=== PATIENT | female | born 1965 | race Caucasian/White ===

== ENCOUNTER → 2019-02-23 | Outpatient (CLI) | payer OTHER ==
--- NOTE | 2019-02-23 11:11 | Diagnostic Imaging Report ---
INDICATION: Left ankle pain. Time of exam: 10:41 AM 3 views of the left ankle were obtained. There is some widening of the medial clear space of the ankle mortise. This can be seen with ligamentous injury. Osseous densities are noted adjacent to the medial malleolus as well as the lateral malleolus which could be chronic. No acute fracture line is identified. There is some soft tissue swelling about the ankle. IMPRESSION: Soft tissue swelling as well as some widening of the medial clear space of the ankle which can be seen with ligamentous injury. No definite acute fracture is identified. Dictated by: Dictated on workstation # [id number]
== END ==
LOC: RAD FS 10:34
PROVIDERS: ATTEND Family Medicine
DX: M25.572 Pain in left ankle and joints of left foot (principal); M79.89 Other specified soft tissue disorders
CPT/HCPCS: 73610

== ENCOUNTER → 2019-07-21 | Outpatient (CLI) | payer MEDICARE, OTHER ==
[~2019-07-21] MED LIST: GADOBUTROL 7.5 MMOL/7.5 ML (GADAVIST) VIAL IV ONE
[2019-07-21 13:53] LABS: ALANINE AMINOTRANSFERASE 19 U/L (0-55); ALBUMIN 4.4 GM/DL (3.2-4.5); ALKALINE PHOSPHATASE 98 U/L (40-136); BILIRUBIN,TOTAL 0.9 MG/DL (0.1-1.0); BUN/CREATININE RATIO 14; CALCIUM 9.6 MG/DL (8.5-10.1); CARBON DIOXIDE 26 MMOL/L (21-32); CHLORIDE 103 MMOL/L (98-107); CREATININE SERUM 0.78 MG/DL (0.60-1.30); GFR ESTIMATED > 60; GLUCOSE 85 MG/DL (70-105); POTASSIUM 4.4 MMOL/L (3.6-5.0); SODIUM 140 MMOL/L (135-145)
--- NOTE | 2019-07-21 16:09 | Diagnostic Imaging Report ---
PROCEDURE: MR imaging of the brain with and without contrast. TECHNIQUE: Multiplanar, multisequence MR imaging of the brain was performed with and without contrast. INDICATION: Multiple sclerosis. COMPARISON: There is no previous study available at this time for direct comparison. FINDINGS: There is mild diffuse prominence of ventricles and sulci indicating volume loss. In addition, there is rather extensive T2 prolongation within the deep white matter and periventricular white matter of both hemispheres with areas of possible early cyst formation. Majority of lesions are oriented perpendicular to the corpus callosum with abnormal increased T2 signal throughout the corpus callosum as well. There is no evidence of positive mass effect or shift of midline structures. There is no abnormal contrast enhancement. No restricted diffusion is seen to indicate infarct or active multiple sclerosis lesion. IMPRESSION: Findings are compatible with extensive involvement with multiple sclerosis as described. There is mild background volume loss throughout the brain. No acute infarct or other acute intracranial lesion is identified, and no abnormal contrast enhancement is detected. Dictated by: Dictated on workstation # [id number]
--- NOTE | 2019-07-21 16:25 | Diagnostic Imaging Report ---
PROCEDURE: MR imaging of the cervical spine with and without contrast. TECHNIQUE: Multiplanar and multisequence MRI of the cervical spine was performed with and without contrast. INDICATION: History of multiple sclerosis. Follow-up. COMPARISON: None available. FINDINGS: There is mildly exaggerated cervical lordosis. No spondylolisthesis is seen. Vertebral body heights are preserved. No acute fracture is seen. On axial imaging, there appear to be multiple areas of increased T2 signal in the cervical cord. There is a 2 mm lesion in the left cord at the C4-C5 level. There is an ill-defined lesion of the cord extending from C2 down to C3, which is also seen on the sagittal view (image 7, series 11). No enhancing lesions are seen. There is no spinal canal stenosis. There appears to be ill-defined T2 hyperintensity in the jam as well. C2-C3: Small posterior disc osteophyte complex. No foraminal or spinal canal stenosis. C3-C4: Small posterior disc osteophyte complex. Mild left foraminal narrowing. No spinal canal stenosis. C4-C5: Posterior disc osteophyte complex. No spinal canal or foraminal stenosis. C5-C6: Posterior disc osteophyte complex. Mild right foraminal narrowing. Moderate left foraminal stenosis. No spinal canal stenosis. C6-C7: Posterior disc osteophyte complex. No spinal canal or foraminal stenosis. C7-T1: No spinal canal or foraminal stenosis. IMPRESSION: 1. Multiple subtle ill-defined T2 bright lesions in the spinal cord, as described above. No enhancement is seen. 2. Ill-defined pontine lesions as well, please refer to MRI of the brain. 3. Multilevel degenerative changes in the cervical spine. No spinal canal stenosis. Moderate left foraminal stenosis at C5-C6. Dictated by: Dictated on workstation # [id number]
== END ==
LOC: RAD 13:04
PROVIDERS: ATTEND Psychiatry & Neurology Neurology
DX: G35 Multiple sclerosis (principal); M48.02 Spinal stenosis, cervical region; M47.812 Spondylosis without myelopathy or radiculopathy, cervical region
CPT/HCPCS: 36415; 70553; 72156; 80053

== ENCOUNTER → 2020-03-26 | Outpatient (CLI) | payer MEDICARE ==
[2020-03-26 13:54] LABS: ALANINE AMINOTRANSFERASE 8 U/L (0-55); ALKALINE PHOSPHATASE 79 U/L (40-136); BILIRUBIN,TOTAL 0.5 MG/DL (0.1-1.0); BUN/CREATININE RATIO 25; CALCIUM 9.5 MG/DL (8.5-10.1); CARBON DIOXIDE 29 MMOL/L (21-32); CHLORIDE 105 MMOL/L (98-107); CREATININE SERUM 0.71 MG/DL (0.60-1.30); GFR ESTIMATED > 60; GLUCOSE 85 MG/DL (70-105); POTASSIUM 4.2 MMOL/L (3.6-5.0); SODIUM 141 MMOL/L (135-145); TOTAL PROTEIN 6.2 GM/DL (6.4-8.2)
--- NOTE | 2020-03-26 16:06 | Diagnostic Imaging Report ---
PROCEDURE: MR imaging of the brain with and without contrast. TECHNIQUE: Multiplanar, multisequence MR imaging of the brain was performed with and without contrast. INDICATION: Multiple sclerosis. COMPARISON: 07/21/2019. FINDINGS: There is prominence of the ventricles and sulci which is unchanged. Note is again made of extensive T2 hyperintensities within the deep white matter and periventricular white matter which are stable. Many of these are oriented perpendicular to the corpus callosum. There are no abnormal areas of contrast enhancement. There are no areas of diffusion restriction. There is no mass, hemorrhage, or extra-axial fluid collection. The sinuses and mastoid air cells are clear. IMPRESSION: Extensive white matter disease as described, compatible with multiple sclerosis. There is a background of some atrophy. There is, however, no acute infarct or other acute intracranial abnormality. Additionally, there are no abnormal areas of contrast enhancement appreciated to suggest active disease. Dictated by: Dictated on workstation # [id number]
--- NOTE | 2020-03-26 16:32 | Diagnostic Imaging Report ---
PROCEDURE: MR imaging cervical spine with and without contrast. TECHNIQUE: Multiplanar and multisequence MRI of the cervical spine was performed with and without contrast. INDICATION: Multiple sclerosis. Comparison made with prior examination from 07/21/2019. FINDINGS: The alignment of the cervical spine is normal. The vertebral body heights are well maintained. Prevertebral soft tissues are within normal limits. Note is again made of some subtle amorphous T2 bright areas within the upper cervical cord and to a lesser degree the jam. None of these show any contrast enhancement. The cord itself is otherwise normal in morphology. At C2-C3, there is no spinal or neuroforaminal encroachment. At C3-C4, there is mild bilateral uncovertebral joint hypertrophy with mild bilateral neuroforaminal encroachment. At C4-C5, there is mild annular bulging and mild bilateral uncovertebral joint hypertrophy. There is slight effacement of the ventral thecal sac and mild bilateral neuroforaminal encroachment. At C5-C6, there is mild annular bulging and bilateral uncovertebral joint hypertrophy. There is mild effacement of the ventral thecal sac and mild bilateral neuroforaminal encroachment. At C6-C7, there is annular bulging with slight effacement of the ventral thecal sac. At C7-T1, there is no significant spinal or neuroforaminal encroachment. IMPRESSION: Unchanged subtle areas of ill-defined T2 bright signal intensity within the upper cord and jam. This is essentially unchanged. None of these show abnormal enhancement. Diffuse cervical spondylosis and multilevel degenerative disc disease as described. Dictated by: Dictated on workstation # [id number]
== END ==
LOC: RAD 13:09
PROVIDERS: ATTEND Psychiatry & Neurology Neurology
DX: G35 Multiple sclerosis (principal); M47.812 Spondylosis without myelopathy or radiculopathy, cervical region; M50.30 Other cervical disc degeneration, unspecified cervical region; G31.9 Degenerative disease of nervous system, unspecified; R90.82 White matter disease, unspecified
CPT/HCPCS: 36415; 70553; 72156; 80053

== ENCOUNTER 2022-01-01 21:40 | Inpatient (IN) | payer MEDICARE ==
[~2022-01-01] VITALS: Ht 160 cm; Wt 80.0 kg
--- NOTE | 2022-01-01 21:53 | ED General ---
General Stated Complaint: FEVER History of Present Illness Date Seen by Provider: Jan 01, 2022 Time Seen by Provider: 21:53 Initial Comments 56-year-old female with PMH of multiple sclerosis, end stage/leukemia/ sacral ulcers, is brought in by her family with complaints of generalized weakness, fever, lack of appetite for the past 2 to 3 days which has been worsening. Patient is taking care of by her and family. Patient is unable to ambulate at baseline. Patient's uses a [employer] lift at home and also uses a lift to get her into his pickup truck. EMS had to come to the hospital to assist the patient out of the pickup truck. Patient is able to respond to questions but has generalized weakness and lethargy. At baseline patient's speech is not clear as per and family. Denies nausea, vomiting, chest pain, shortness of breath, headache. Patient's thinks she has more loos e stools than usual but not watery like diarrhea. Allergies and Home Medications Allergies Coded Allergies: No Known Drug Allergies (Unverified , 07/21/19) Patient Home Medication List Home Medication List Reviewed: Yes Review of Systems Review of Systems Constitutional: fever, malaise, weakness EENTM: no symptoms reported Respiratory: no symptoms reported Cardiovascular: no symptoms reported Gastrointestinal: diarrhea, loss of appetite Genitourinary: no symptoms reported Musculoskeletal: no symptoms reported Skin: other (sacral ulcers) Hematologic/Lymphatic: See HPI Immunological/Allergic: no symptoms reported Physical Exam Vital Signs Vital Signs - First Documented 01/01/22 21:50 Temp 37.7 Pulse 125 Resp 18 B/P (MAP) 165/95 (118) Pulse Ox 94 O2 Delivery Room Air Capillary Refill : Height, Weight, BMI Height: '" Weight: lbs. oz. kg; BMI Method: General Appearance: Mild Distress, Obese HEENT: Normal ENT Inspection, Other (dry mucous membranes) Neck: Full Range of Motion, Normal Inspection, Non Tender Respiratory: No Accessory Muscle Use, No Respiratory Distress, Rhonci Cardiovascular: Tachycardia Gastrointestinal: Normal Bowel Sounds, Non Tender, Soft Back: No CVA Tenderness Neurologic/Psychiatric: Alert, Oriented x3, Motor Weakness, Other (lethargic) Skin: Warm/Dry Focused Exam Lactate Level 01/01/22 22:15: Lactic Acid Level 0.67 Lactic Acid Level Laboratory Tests Test 01/01/22 22:15 Lactic Acid Level 0.67 MMOL/L (0.50-2.00) Progress/Results/Core Measures Suspected Sepsis SIRS Temperature: Pulse: Respiratory Rate: Laboratory Tests 01/01/22 22:15: White Blood Count 7.4 Blood Pressure / Mean: 01/01/22 22:15: Lactic Acid Level 0.67 Laboratory Tests 01/01/22 22:15: Creatinine 0.51L, INR Comment 1.0, Platelet Count 199, Total Bilirubin 0.9 Results/Orders Lab Results Laboratory Tests Test 01/01/22 22:15 01/01/22 22:50 01/01/22 23:00 Range/Units White Blood Count 7.4 4.3-11.0 10^3/uL Red Blood Count 4.77 3.80-5.11 10^6/uL Hemoglobin 14.0 11.5-16.0 g/dL Hematocrit 42 35-52 % Mean Corpuscular Volume 88 80-99 fL Mean Corpuscular Hemoglobin 29 25-34 pg Mean Corpuscular Hemoglobin Concent 33 32-36 g/dL Red Cell Distribution Width 14.1 10.0-14.5 % Platelet Count 199 130-400 10^3/uL Mean Platelet Volume 10.1 9.0-12.2 fL Immature Granulocyte % (Auto) 0 % Neutrophils (%) (Auto) 83 H 42-75 % Lymphocytes (%) (Auto) 9 L 12-44 % Monocytes (%) (Auto) 8 0-12 % Eosinophils (%) (Auto) 0 0-10 % Basophils (%) (Auto) 0 0-10 % Neutrophils # (Auto) 6.1 1.8-7.8 10^3/uL Lymphocytes # (Auto) 0.7 L 1.0-4.0 10^3/uL Monocytes # (Auto) 0.6 0.0-1.0 10^3/uL Eosinophils # (Auto) 0.0 0.0-0.3 10^3/uL Basophils # (Auto) 0.0 0.0-0.1 10^3/uL Immature Granulocyte # (Auto) 0.0 0.0-0.1 10^3/uL Prothrombin Time 13.1 12.2-14.7 SEC INR Comment 1.0 0.8-1.4 Activated Partial Thromboplast Time 32 24-35 SEC D-Dimer 1.07 H 0.00-0.49 UG/ML Sodium Level 138 135-145 MMOL/L Potassium Level 4.2 3.6-5.0 MMOL/L Chloride Level 101 98-107 MMOL/L Carbon Dioxide Level 25 21-32 MMOL/L Anion Gap 12 5-14 MMOL/L Blood Urea Nitrogen 12 7-18 MG/DL Creatinine 0.51 L 0.60-1.30 MG/DL Estimat Glomerular Filtration Rate 109 BUN/Creatinine Ratio 24 Glucose Level 114 H 70-105 MG/DL Lactic Acid Level 0.67 0.50-2.00 MMOL/L Calcium Level 9.0 8.5-10.1 MG/DL Corrected Calcium 9.2 8.5-10.1 MG/DL Magnesium Level 2.0 1.6-2.4 MG/DL Total Bilirubin 0.9 0.1-1.0 MG/DL Aspartate Amino Transf (AST/SGOT) 19 5-34 U/L Alanine Aminotransferase (ALT/SGPT) 12 0-55 U/L Alkaline Phosphatase 105 40-136 U/L Troponin I < 0.30 <0.30 NG/ML Pro-B-Type Natriuretic Peptide 91.7 H <75.0 PG/ML Total Protein 6.6 6.4-8.2 GM/DL Albumin 3.8 3.2-4.5 GM/DL Lipase 21 8-78 U/L Influenza Type A Antigen NEGATIVE NEGATIVE Influenza Type B Antigen NEGATIVE NEGATIVE Urine Color YELLOW Urine Clarity TURBID Urine pH 8.5 5-9 Urine Specific [place] 1.015 L 1.016-1.022 Urine Protein NEGATIVE NEGATIVE Urine Glucose (UA) NEGATIVE NEGATIVE Urine Ketones TRACE H NEGATIVE Urine Nitrite NEGATIVE NEGATIVE Urine Bilirubin NEGATIVE NEGATIVE Urine Urobilinogen 1.0 < = 1.0 MG/DL Urine Leukocyte Esterase NEGATIVE NEGATIVE Urine RBC (Auto) NEGATIVE NEGATIVE Urine RBC RARE /HPF Urine WBC 2-5 /HPF Urine Squamous Epithelial Cells RARE /HPF Urine Renal Epithelial Cells RARE /HPF Urine Crystals PRESENT H /LPF Urine Amorphous Sediment LARGE DREW PHOSPHATE H /LPF Urine Bacteria LARGE H /HPF Urine Casts PRESENT /LPF Urine Hyaline Casts RARE /LPF Urine Mucus MODERATE H /LPF Urine Culture Indicated CULTURE PENDING My Orders Orders - STEVEN GOETZ MD Chest 1 View Ap/Pa Only (01/01/22 22:04) Cbc With Automated Diff (01/01/22 22:06) Comprehensive Metabolic Panel (01/01/22 22:06) Blood Culture (01/01/22 22:) Sputum Culture (01/01/22 22:) Urinalysis (01/01/22 22:) Urine Culture (01/01/22 22:06) Protime With Inr (01/01/22:) Partial Thromboplastin Time (01/01/22:) Ed Iv/Invasive Line Start (01/01/22 22:06) Ekg Tracing (01/01/22 22:) Vital Signs Adult Sepsis Patie Q15M (01/01/22 22:06) O2 (01/01/22 22:) Remove Rings In Anticipation O (01/01/22 22:) Lactic Acid Analyzer (01/01/22 22:) Ns Iv 1000 Ml (Sodium Chloride 0.9%) (01/01/22 22:15) Fibrin Degradation Products (01/01/22 22:08) Lipase (01/01/22 22:08) Magnesium (01/01/22 22:08) Procalcitonin (Pct) (01/01/22 22:08) Probnp Fs (01/01/22 22:08) Troponin I Fs (01/01/22 22:08) C Difficile Ag + Toxin A/B. (01/01/22 22:36) Isolation Central Supply Req (01/01/22 22:36) Covid 19 Inhouse Test (01/01/22 22:36) Isolation Central Supply Req (01/01/22 22:36) Ns Iv 1000 Ml (Sodium Chloride 0.9%) (01/01/22 23:15) Ct Angio Chest W (01/01/22 23:33) Iohexol Injection (Omnipaque 350 Mg/Ml 1 (01/01/22 23:45) Received Contrast (Hold Metformin- Contr (01/01/22 23:45) Sodium Chloride Flush (Catheter Flush Sy (01/01/22 23:45) Ns (Ivpb) (Sodium Chloride 0.9% Ivpb Bag (01/01/22 23:45) Influenza A & B Antigens (01/01/22 23:47) Catheter(Urinary) Insert & Ass 03,15 (01/01/22 23:48) Azithromycin 500 Mg Iv (1x Dos (01/02/22 01:23) Medications Given in ED Current Medications Medications Dose Ordered Sig/Derik Route Start Time Stop Time Status Last Admin Dose Admin Iohexol 125 ml ONCE ONCE IV 01/01/22 23:45 01/01/22 23:48 DC 01/02/22 00:04 125 ML Sodium Chloride 10 ml NEEDED PRN IV 01/01/22 23:45 01/02/22 00:05 10 ML Sodium Chloride 100 ml ONCE ONCE IV 01/01/22 23:45 01/01/22 23:48 DC 01/02/22 00:04 80 ML Vital Signs/I&O 01/01/22 01/01/22 01/01/22 01/02/22 21:50 22:30 23:00 00:15 Temp 37.7 Pulse 125 120 104 111 Resp 18 18 17 B/P (MAP) 165/95 (118) 162/95 142/86 144/94 Pulse Ox 94 93 97 O2 Delivery Room Air Room Air Room Air Room Air Capillary Refill : Progress Note : Progress Note 1. GENERALIZED WEAKNESS/ DEHYDRATION: - CXR unremarkable - Labs: overall unremarkable - UA no infection - Troponin/ EKG: no acute changes - NS IVF bolus STAT x 2 with tachycardia improving slightly - Pt still appears clinically dehydrated with generalized weakness and intolerance to food or liquids. - Will benefit from admission, physical therapy consult, and e-ICU consult. Discussed with Dr Torres - Code status discussed with pt and and Pt wants to be full code. 2. RIGHT LOWER LOBE PNEUMONIA/ COVID suspect - WBC normal but neutrophils elevated - Blood culture x 2 - CXR negative, but CTA done due to elevated d-dimer, and it shows a right basilar small infiltrate - COVID test ordered - suspicious for COVID - Rapid flu test negative - Azithro 500mg iv STAT and Ceftriaxone 1gm im STAT Diagnostic Imaging Diagonstic Imaging: Xray, CT Plain Films/CT/US/NM/MRI: chest Comments CTA CHEST READ BY STAT RAD: - No PE. - Patchy opacity at the right lung base may represent a small infiltrate [facility] [place] NAME: RAINAAMARA S [facility] REC#: [id number] PT STATUS: REG ER : 1965 PHYSICIAN: STEVEN GOETZ MD ADMIT DATE: 01/01/22/ER FS Signed Date of Exam:01/01/22 CHEST 1 VIEW AP/PA ONLY INDICATION: Fever. EXAMINATION: Portable chest at 10:10 PM. Heart size and pulmonary vascularity are normal. Lungs are clear. There are no effusions or pneumothoraces. IMPRESSION: No acute abnormalities in the chest. Dictated by: Dictated on workstation # [id number] Dict: 01/01/224 Trans: 01/01/222219 [id number] Interpreted by: JOEL SIDHU MD Electronically signed by: JOEL SIDHU MD 01/01/222219 Departure Communication (Admissions) Time/Spoke to Admitting Phy: 01:[address] Torres. Will admit to ICU Impression Primary Impression: Generalized weakness Additional Impressions: Dehydration Right lower lobe pneumonia Qualified Codes: J18.9 - Pneumonia, unspecified organism Suspected COVID-19 virus infection Disposition: 30 STILL A PATIENT Condition: Stable Admissions Decision to Admit Reason: Admit from ER (General) Decision to Admit/Date: Jan 02, 2022 Time/Decision to Admit Time: 01:00 Departure-Patient Inst. Referrals: EFRAIN CRABTREE MD (PCP/Family) Primary Care Physician STEVEN GOETZ MD Jan 01, 2022 21:53
[2022-01-01] MEDS ORDERED: NS IV 1000 ML 1,000 ML IV SCH ×2 (22:15→23:15)
--- NOTE | 2022-01-01 22:16 | Diagnostic Imaging Report ---
INDICATION: Fever. EXAMINATION: Portable chest at 10:10 PM. Heart size and pulmonary vascularity are normal. Lungs are clear. There are no effusions or pneumothoraces. IMPRESSION: No acute abnormalities in the chest. Dictated by: Dictated on workstation # [id number]
[2022-01-01 22:25] LABS: BASOPHILS % (AUTO) 0 % (0-10); EOSINOPHILS % (AUTO) 0 % (0-10); HEMATOCRIT 42 % (35-52); LYMPHOCYTES # (AUTO) 0.7 10^3/uL (1.0-4.0); LYMPHOCYTES % (AUTO) 9 % (12-44); MEAN CORPUSCULAR HEMOGLOBIN 29 pg (25-34); MEAN CORPUSCULAR HGB CONC 33 g/dL (32-36); MEAN CORPUSCULAR VOLUME 88 fL (80-99); MEAN PLATELET VOLUME 10.1 fL (9.0-12.2); MONOCYTES # (AUTO) 0.6 10^3/uL (0.0-1.0); MONOCYTES % (AUTO) 8 % (0-12); NEUTROPHILS # (AUTO) 6.1 10^3/uL (1.8-7.8); NEUTROPHILS % (AUTO) 83 % (42-75); PLATELET COUNT 199 10^3/uL (130-400); WHITE BLOOD COUNT 7.4 10^3/uL (4.3-11.0)
[2022-01-01 22:45] LABS: PROTHROMBIN TIME PATIENT 13.1 SEC (12.2-14.7)
[2022-01-01 22:53] LABS: ALKALINE PHOSPHATASE 105 U/L (40-136); BILIRUBIN,TOTAL 0.9 MG/DL (0.1-1.0); BUN/CREATININE RATIO 24; CARBON DIOXIDE 25 MMOL/L (21-32); CHLORIDE 101 MMOL/L (98-107); CREATININE SERUM 0.51 MG/DL (0.60-1.30); FIBRIN DEGRADATION PRODUCTS 1.07 UG/ML (0.00-0.49); GFR ESTIMATED 109; GLUCOSE 114 MG/DL (70-105); POTASSIUM 4.2 MMOL/L (3.6-5.0); SODIUM 138 MMOL/L (135-145)
[2022-01-01 22:54] LABS: ALANINE AMINOTRANSFERASE 12 U/L (0-55); ALBUMIN 3.8 GM/DL (3.2-4.5); LIPASE 21 U/L (8-78); TOTAL PROTEIN 6.6 GM/DL (6.4-8.2)
[2022-01-01 23:14] LABS: BILIRUBIN,URINE NEGATIVE (NEGATIVE); CLARITY,URINE TURBID; COLOR,URINE YELLOW; GLUCOSE, URINE (UA) NEGATIVE (NEGATIVE); KETONES,URINE TRACE (NEGATIVE); LEUKOCYTE ESTERASE ,URINE NEGATIVE (NEGATIVE); NITRITE,URINE NEGATIVE (NEGATIVE); PH,URINE 8.5 (5-9); PROTEIN,URINE NEGATIVE (NEGATIVE)
[2022-01-01 23:25] LABS: AMORPHOUS SEDIMENT,UR LARGE AMOR PHOSPHATE /LPF; BACTERIA,URINE LARGE /HPF; HYALINE CASTS, URINE RARE /LPF; RBC,URINE RARE /HPF; RENAL EPITHELIAL CELLS,URINE RARE /HPF; SQUAMOUS EPITHELIAL CELL,UR RARE /HPF
[2022-01-01] MEDS ORDERED: NS 100 ML (IVPB) BAG IV ONE (23:45)
[2022-01-01] MEDS ORDERED: CATHETER FLUSH 10 ML SYR IV PRN (23:45)
[2022-01-01] MEDS ORDERED: IOHEXOL 350 MG/ML 150 ML (OMNIPAQUE 350) VIAL IV ONE (23:45)
[2022-01-01] MEDS ORDERED: HOLD METFORMIN - RECEIVED CONTRAST 20 ML VIAL IV SCH (23:45)
[2022-01-02] MEDS ORDERED: AZITHROMYCIN INJECTION 500 MG in NS (IVPB) 250 ML IV STA (01:23)
[2022-01-02] MEDS ORDERED: FAMOTIDINE 20 MG (PEPCID) TABLET PO ONE (02:00)
[2022-01-02] MEDS ORDERED: predniSONE 20 MG TAB PO ONE (02:00)
[2022-01-02 03:30] VITALS: BP 165/95
[2022-01-02] MEDS ORDERED: RT-ALBUTEROL SULF 2.5 MG/3 ML PRE-MIX VIAL INH PRN (03:45)
[2022-01-02] MEDS ORDERED: ACETAMINOPHEN 325 MG TABLET PO PRN (04:00)
[2022-01-02] MEDS: NS IV 1000 ML 1,000 ML IV SCH ×4 (04:18→20:51)
[2022-01-02 04:47] LABS: BASOPHILS % (AUTO) 0 % (0-10); EOSINOPHILS % (AUTO) 0 % (0-10); HEMATOCRIT 38 % (35-52); HEMOGLOBIN 12.6 g/dL (11.5-16.0); LYMPHOCYTES # (AUTO) 0.4 10^3/uL (1.0-4.0); LYMPHOCYTES % (AUTO) 5 % (12-44); MEAN CORPUSCULAR HEMOGLOBIN 30 pg (25-34); MEAN CORPUSCULAR HGB CONC 33 g/dL (32-36); MEAN CORPUSCULAR VOLUME 89 fL (80-99); MEAN PLATELET VOLUME 10.1 fL (9.0-12.2); MONOCYTES # (AUTO) 0.3 10^3/uL (0.0-1.0); MONOCYTES % (AUTO) 3 % (0-12); NEUTROPHILS # (AUTO) 7.3 10^3/uL (1.8-7.8); NEUTROPHILS % (AUTO) 91 % (42-75); PLATELET COUNT 153 10^3/uL (130-400)
[2022-01-02 05:04] LABS: ALBUMIN 3.4 GM/DL (3.2-4.5); POTASSIUM 3.8 MMOL/L (3.6-5.0)
[2022-01-02 05:05] LABS: BAND NEUTROPHILS 0 %; BASOPHILS % (MANUAL) 0 %; CALCIUM 8.1 MG/DL (8.5-10.1); EOSINOPHILS % (MANUAL) 0 %; LYMPHOCYTES % (MANUAL) 7 %; MONOCYTES % (MANUAL) 4 %; NEUTROPHILS % (MANUAL) 89 %; RBC MORPH NORMAL
[2022-01-02 05:07] LABS: TOTAL PROTEIN 5.5 GM/DL (6.4-8.2)
[2022-01-02 05:10] LABS: CREATININE SERUM 0.54 MG/DL (0.60-1.30); PHOSPHORUS 2.4 MG/DL (2.3-4.7)
[2022-01-02 05:13] LABS: MAGNESIUM 1.9 MG/DL (1.6-2.4)
[2022-01-02] MEDS: cefTRIAXone 1 GM IV (PRE-MIX) 50 ML IV SCH (05:55)
[2022-01-02] MEDS ORDERED: KCL 20 MEQ TAB (K-DUR) PO SCH (06:00)
[2022-01-02] MEDS ORDERED: POTASSIUM CL 10MEQ/50ML IVPB 50 ML IV SCH (06:00)
[2022-01-02] MEDS ORDERED: MAGNESIUM 1 GM/100 ML IVPB 100 ML IV SCH (06:00)
--- NOTE | 2022-01-02 06:22 | Diagnostic Imaging Report ---
PROCEDURE: CT angiography of the chest with contrast. TECHNIQUE: Multiple contiguous axial images were obtained through the chest after uneventful bolus administration of intravenous contrast. 3D reconstructed CTA MIP acquisitions were also performed. Auto Exposure Controls were utilized during the CT exam to meet ALARA standards for radiation dose reduction. INDICATION: Chest pain and shortness of breath. FINDINGS: There is minimal scarring in the right lung apex. A small patchy infiltrate in the right lung base. There is no pleural or pericardial fluid. There is no pneumothorax. There is no pathologically enlarged adenopathy in the chest. The thoracic aorta is normal in caliber and without evidence of dissection. There are no filling defects seen within the pulmonary arteries to suggest pulmonary embolism. The visualized intra-abdominal structures are unremarkable. There are degenerative changes in the spine. IMPRESSION: No evidence of aortic aneurysm, dissection or pulmonary embolism. Scarring in the right lung apex as well as a patchy infiltrate in right lung base. Dictated by: Dictated on workstation # [id number]
[2022-01-02] MEDS: RT-ALBUTEROL SULF 2.5 MG/3 ML PRE-MIX VIAL INH SCH ×2 (07:34→22:06)
[2022-01-02] MEDS ORDERED: MULT-1021 PO (11:23)
[2022-01-02] MEDS ORDERED: ESCI20TA39 PO (11:23)
[2022-01-02] MEDS ORDERED: TRZ50T PO (11:23)
[2022-01-02] MEDS ORDERED: BACL10TA PO (11:23)
[2022-01-02] MEDS ORDERED: GBPN600T PO (11:23)
--- NOTE | 2022-01-02 12:06 | Tele-ICU Consult ---
History of Present Illness History of Present Illness Date Seen by Provider: Jan 02, 2022 Time Seen by Provider: 12:06 Date of Admission (Tele-ICU Physician , consultation) Available chart/ vitals / labs / Images reviewed H&P is from ER notes Patient's information available about PMH, Shx, Fhx allergy reviewed in EMR. ROS as per chart and RN report Now in ICU, hemodynamically stable Video assessment done using teleICU camera, rest of exam as per RN Discussed with RN. Consultants: Hospital course: (01/02) 56y/F in with weakness, waiting for updated md note. pcxr shows poss pna A/P PNA ( small infiltrates on CT chest ) - cont abx , monitor MS - bed - bound - ? on TX - await more info Sepsis ? hemodynamically stable - monitor ID -NEG fluand covid -? reported diarrhea - monitor - no skin lesions as per RN exam - abx for CAP borderline elev Ddimer - no PE on CTA Plans in collaboration with bedside consultants and IM MDs. Discussed with RN to reach out if any questions or concerns A total of 20minutes of critical care time was devoted to this patient today, required to treat and/or prevent further deterioration of critical care condition ( as above ) . Allergies and Home Medications Allergies Coded Allergies: No Known Drug Allergies (Unverified , 07/21/19) Home Medications Baclofen 10 Mg Tablet, 20 MG PO TID, (Reported) TAKES 2 (10MG) TABS Escitalopram Oxalate 20 Mg Tablet, 20 MG PO HS, (Reported) Gabapentin 600 Mg Tablet, 600 MG PO TID, (Reported) Multivits-Min/Iron/FA/Lutein 8 Mg Iron-400 Mcg-300 Mcg Tablet, 1 EACH PO DAILY, (Reported) Trazodone HCl 50 Mg Tablet, 50 MG PO HS, (Reported) Past Medical/Social/Family Hx Patient Social History Tobacco Use?: No Smoking Status: Never a Smoker Use of E-Cig and/or Vaping dev: No Substance use?: No Alcohol Use?: No Pt stated abuse/neglect: No Immunizations Up To Date Influenza Vaccine Up-to-Date: Yes; Up-to-Date Current Status Advance Directives: Unable to obtain Communicates: Verbally Primary Language: Citizen Of [place] Preferred Spoken Language: Citizen Of [place] Is interpretation needed?: No Sensory deficits: Speech impairment Implanted or Applied Medical D: None Review of Systems Constitutional: see HPI Focused Exam Lactate Level 01/01/22 22:15: Lactic Acid Level 0.67 01/02/22 04:40: Lactic Acid Level 0.57 Height, Weight, BMI Height: '" Weight: lbs. oz. kg; 32.22 BMI Method: Exam Exam Patient acknowledged, consented, and participated in this virtual visit which was conducted using real time audio/video Vital Signs Date Time Temp Pulse Resp B/P (MAP) Pulse Ox O2 Delivery O2 Flow Rate FiO2 01/02/22 11:00 108 22 140/94 95 Room Air 01/02/22 10:00 105 16 137/89 92 Room Air 01/02/22 09:00 110 11 121/83 93 Room Air 01/02/22 08:00 107 7 119/86 95 Room Air 01/02/22 07:34 93 Room Air 01/02/22 07:30 96 Room Air 01/02/22 07:00 96 01/02/22 07:00 98 13 106/79 94 Room Air 01/02/22 06:00 98 17 111/89 92 Room Air 01/02/22 05:00 102 16 125/77 93 Room Air 01/02/22 04:30 109 14 121/89 93 Room Air 01/02/22 04:15 105 17 126/82 92 Room Air 01/02/22 04:02 37.5 01/02/22 04:00 106 18 117/83 92 Room Air 01/02/22 04:00 Nasal Cannula 6.00 01/02/22 03:45 107 18 118/78 93 Room Air 01/02/22 03:30 37.7 125 94 21 01/02/22 03:30 109 19 129/91 94 Room Air 01/02/22 03:20 110 01/02/22 03:00 37.5 Room Air 01/02/22 02:00 117 15 125/81 95 Room Air 01/02/22 01:30 37.1 111 16 139/66 95 Room Air 01/02/22 01:00 108 18 134/69 96 Room Air 01/02/22 00:15 111 144/94 Room Air 01/01/22 23:00 104 17 142/86 97 Room Air 01/01/22 22:30 120 18 162/95 93 Room Air 01/01/22 21:50 37.7 125 18 165/95 (118) 94 Room Air I & O 01/02/22 07:00 Output Total 600 ml Balance -600 ml Height & Weight Height: '" Weight: lbs. oz. kg; 32.22 BMI Method: General Appearance: No Apparent Distress, Mild Distress, Obese HEENT: Normal ENT Inspection, Other (dry mucous membranes) Neck: Full Range of Motion, Normal Inspection, Non Tender Respiratory: No Accessory Muscle Use, No Respiratory Distress, Rhonci Cardiovascular: Tachycardia Capillary Refill: Less Than 3 Seconds Neurologic/Psychiatric: Alert, Oriented x3, Motor Weakness, Other (lethargic) Skin: Warm/Dry Results Lab Laboratory Tests 01/01/22 22:15 01/02/22 04:40 Assessment/Plan Assessment/Plan ` SMITH TALAMANTES MD Jan 02, 2022 12:06
[2022-01-02] MEDS ORDERED: HYPOCHLOROUS ACID/NaCl (VASHE) 250 ML IR PRN (12:30)
--- NOTE | 2022-01-02 12:58 | Occ Therapy Progress Note ---
Therapy Progress Note OT orders received and chart was reviewed. Per chart, pt diagnosed with MS and end stage leukemia. At baseline, she is bed bound and family provides total care for adls. She uses a [employer] lift and does not ambulate. Pt only speaks 1-2 words at a time at baseline. No skilled OT services are warranted at this time. Family could benefit from education on positioning and pressure relief which a nurse could provide. Amanda Mcgregor OT Jan 02, 2022 12:58
--- NOTE | 2022-01-02 13:23 | ST Dysphagia Evaluation ---
Speech Evaluation-General Medical Diagnosis Dehydration, Right Lower Lobe Pneumonia Onset Date: Jan 01, 2022 Therapy Diagnosis Therapy Diagnosis: Marked Oropharyngeal Dysphagia Precautions Precautions: Fall, Aspiration Precautions/Isolations: Aspiration, Fall Prevention, Standard Precautions Referral Referring Physician: Dr. Fontana Reason for Referral: Evaluation/Treatment Medical History Current History The patient is a 56 year-old female with a past medical history of multiple sclerosis, end stage/leukemia/ sacral ulcers, who presented to [facility] by her family with complaints of generalized weakness, fever, and lack of appetite. Speech PLF/Current-Dysphagia Prior Level of Function The patient's stated the patient consumes frozen, prepared meals, minced food consistency, burritos (he cuts in half), egg rolls, and thin liquids via straw. The patient's stated the patient avoids rice as the consistency is often "difficult." Subjective The patient was lying in bed, awake and alert upon entrance to her room by the clinician. The patient greeted the clinician and initially deferred completion of the clinical bedside swallowing assessment. With verbal encouragement, education, and support from the clinician and the patient's , the patient agreed to participation in the assessment. The patient was seated upright in bed for safe swallowing. Per patient's , the patient's swallowing difficulty initiated approximately ten years ago. The patient has been recommended blenderized consistencies with thickened liquids following a video swallow in [place] approximately six years ago. The patient is not compliant with this recommendation and stated she will not follow recommendations for diet modifications if provided by the current clinician. The clinician encouraged the patient to attempt the evaluation and complete a decision following. 01/01/22: IMPRESSION: No evidence of aortic aneurysm, dissection or pulmonary embolism. Scarring in the right lung apex as well as a patchy infiltrate in right lung base. Cognitive Status Patient Orientation: Person, Place, Situation Oral Motor Skills Dentition: Natural Ability to Follow Directions: Fair Oral Expression Ability: Moderate Impairment Voice Voice Phonatory-Based Quality: Weak Voice Pitch: Normal Voice Loudness: Moderately Soft/Quiet Face Facial Symmetry: Asymmetrical (Upon range of motion attempts. Symmetrical at rest.) Oral-Facial Assessment Oral-Facial Dentition: Normal Labial Seal Description: Poor Coordination Smile: Poor Coordination Lingual Protrusion: Abnormal Lingual ROM: Abnormal Lingual Strength: Abnormal Volitional Dry Swallow: Yes Voluntary Cough: Yes (Weak.) Can Clear Throat Volitionally: Yes (Weak.) Productive Cough: No Productive Throat Clear: No Dysphagia Evaluation Consistencies Presented: Thin Liquid, Mechanical Soft, [place] Thick Liquid, Honey Thick Liquid, Pureed Oral Phase: Oral Residue, Unable to Form Bolus, Reduced Oral Transit The patient demonstrated difficulty rounding her lips around the teaspoon for safe removal of the thin liquid bolus. The patient was able to draw material t hrough a straw, however, displayed difficulty with ceasing. Poor manipulation of bolus material was appreciated with moderately increased mastication time. A pureed bolus was required to clear moderate residue from the oral cavity following the swallow attempt of solid consistencies. The patient demonstrated a rigorous, weak, breath cough (non-productive) with thin liquids (via straw and teaspoon) and nectar-thick liquids (via straw). No s/s of suspected aspiration were demonstrated with honey-thick liquids via straw, four ounces of puree, or a soft solid bolus attempt. Funct. Velo/Pharyngeal Symptom: Cough After Swallow (Thin liquid, nectar-thick liquid.) Dietary Recommendations: Pureed Liquid Recommendations: Honey Consistancy Recommendations: - Prior to the clinical bedside swallowing evaluation, the clinician and the patient (in addition to the patient's ) discussed recommendations that have previously been recommended by speech language pathologists in the past. Per patient's , the patient has been recommended thickened liquids and a blenderized diet and refuses intake. The patient confirms this statement reporting she will not consume these consistencies if recommended by the clinician. The clinician encouraged completion of the clinical bedside swallowing evaluation regardless of the outcome and the patient agreed. - Dysphagia one (pureed) consistency diet with moderately thick (honey-thick) liquids, as tolerated. - Fully upright and alert for all P.O. intake. - Full feeding assistance and supervision. - Small, single bites and sips, only. - Crush medication and place in puree for administration. - Frequent and excellent oral care to reduce the transfer of oral bacteria to t he lungs should aspiration of secretions occur. - Monitor for s/s of suspected aspiration with P.O. intake. If demonstrated, iesha ce the patient NPO and contact speech pathology. - Complete a modified barium swallow evaluation to assess for the presence of p ossible aspiration with P.O. intake. Scheduled for 01/03/22, at 1100. The results and recommendations were extensively discussed with the patient and the patient's . Additionally, the clinician shared the patient's current condition places her at a high risk of aspiration with all P.O. intake regardless of the lack of s/s of suspected aspiration displayed throughout today's session and the above swallowing strategies would need to be followed with caution. The risks of aspiration were discussed including pneumonia, intubation, and . The patient initially refused the recommended diet consistency. With additional encouragement, education, and support from the clinician and the patient's , the patient agreed to "try" the above recommendations. A video swallow remains recommended due to the patient's high aspiration risk to ensure the most appropriate diet consistency. The above information was shared with the RN upon completion of the assessment. Dysphagia Evaluation Summary The patient displays marked oropharyngeal dysphagia characterized by decreased labial and lingual range of motion, strength and coordination, a suspected delayed onset of the pharyngeal swallow, and poor airway protection in the presence of bolus material. Speech Short Term Goals Short Term Goals Short Term Goals 1. The family and staff will follow safe swallowing recommendations with 90% accuracy, independently. Time Frame-STG: Three Days. Speech Mcc Goals Mcc Goals 1. The patient will tolerate the least restrictive diet consistency without s/s of suspected aspiration. Time Frame: One Week. Speech-Plan Treatment Plan Speech Therapy Treatment Plan: Continue Plan of Care Treatment Duration: Jan 09, 2022 Frequency: 3 times per week Estimated Hrs Per Day: .25 hour per day Rehab Potential: Guarded Pt/Family Agrees to Plan: Yes Safety Risks/Education Teaching Recipient: Patient, Family Teaching Methods: Discussion Response to Teaching: Reinforcement Needed Education Topics Provided: Results, Recommendations, Swallowing Strategies, Aspiration Risks Time Speech Therapy Time In: 12:32 Speech Therapy Time Out: 13:16 Total Billed Time: 44 Billed Treatment Time 1, JAMES DUMONT [facility] Jan 02, 2022 13:23
--- NOTE | 2022-01-02 13:31 | Physical Therapy Progress Note ---
Therapy Progress Note PT visited with patient and spouse. Patient has MS and end stage leukemia. Per spouse report, patient is non ambulatory and requires a [place] Lift for all transfers for the past 12 years. Patient has visible bilateral LE spasticity/contractures of knee flexors and is wind swept right. Spouse and patient declined any need for skilled PT at this time. Nursing notified. 1 ref. MALKA RICH PT Jan 02, 2022 13:31
--- NOTE | 2022-01-02 13:40 | Wound Care Assessment ---
Wound Care Assessment Date Seen by Provider: Jan 02, 2022 Time Seen by Provider: 11:45 Chief Complaint Stage 3 pressure ulcer coccyx HPI This sweet 56 year old lady has a complex medical history involving multiple sclerosis and leukemia. Her brought her in for altered mental status. Small pneumonia suspected on Xrays. Mental status greatly improved today. No recent MS flares, but is concerned as such. He has been doing daily wound care to chronic coccygeal pressure ulcer. It has closed in recent past and is now open (stage 4 in past). Saba is incontinent of feces and urine and has no sensation of incontinence. She has significant weakness (due to MS) and associated immobility. She even has difficulty with conversing. Saba's underlying medical history will make not just healing this ulcer very difficult but certainly prevention of further ulcers will be nearly impossible. Saba had a large bowel movement while we were in room with fecal soiling to ulcer. Prevention of this will be quite difficult. Multiple Sclerosis, Leukemia (type uncertain), Urinary and fecal incontinence (neurogenic) Smoking Status: Never a Smoker Recreational Drug Use: No Alcohol Use: Denies Use Review of Systems General: Fatigue, Other (Dysarthria) Gastrointestinal: Other (Full fecal incontinence) Genitourinary: Incontinence Neurological: Weakness, Numbness Other systems Altered mental status Exam Vital Signs Date Time Temp Pulse Resp B/P (MAP) Pulse Ox O2 Delivery O2 Flow Rate FiO2 01/02/22 12:00 105 11 125/77 96 Room Air 01/02/22 04:02 37.5 01/02/22 04:00 6.00 01/02/22 03:30 21 Capillary Refill : Less Than 3 Seconds General Appearance: WD/WN, no apparent distress Cardiovascular: no edema Respiratory: no respiratory distress, no accessory muscle use Gastrointestinal: other (Fecal incontinence) Extremities: other (Generalized weakness and immobility) Neurologic/Psychiatric: alert, normal mood/affect (Unable to assess orientation due to dysarthria), motor weakness Skin: normal color, warm/dry Skin Character: erythema (non-blanchable erythema in periwound) Wound Assessment: Approximately 2x3x0.2cm ulceration of coccyx. The epitheliali zation is none, there is no tunneling or undermining. Drainage is medium and serous, Granulation is none. Necrotic is large and slough. The margins show epibole. There is non blanchable erythema in periwound and several areas with ecchymosis Results Laboratory Tests 01/01/22 22:15: White Blood Count 7.4, Red Blood Count 4.77, Hemoglobin 14.0, Hematocrit 42, Mean Corpuscular Volume 88, Mean Corpuscular Hemoglobin 29, Mean Corpuscular Hemoglobin Concent 33, Red Cell Distribution Width 14.1, Platelet Count 199, Mean Platelet Volume 10.1, Immature Granulocyte % (Auto) 0, Neutrophils (%) (Auto) 83H, Lymphocytes (%) (Auto) 9L, Monocytes (%) (Auto) 8, Eosinophils (%) (Auto) 0, Basophils (%) (Auto) 0, Neutrophils # (Auto) 6.1, Lymphocytes # (Auto) 0.7L, Monocytes # (Auto) 0.6, Eosinophils # (Auto) 0.0, Basophils # (Auto) 0.0, Immature Granulocyte # (Auto) 0.0, Prothrombin Time 13.1, INR Comment 1.0, Activated Partial Thromboplast Time 32, D-Dimer 1.07H, Sodium Level 138, Potassium Level 4.2, Chloride Level 101, Carbon Dioxide Level 25, Anion Gap 12, Blood Urea Nitrogen 12, Creatinine 0.51L, Estimat Glomerular Filtration Rate 109, BUN/Creatinine Ratio 24, Glucose Level 114H, Lactic Acid Level 0.67, Calcium Level 9.0, Corrected Calcium 9.2, Magnesium Level 2.0, Total Bilirubin 0.9, Aspartate Amino Transf (AST/SGOT) 19, Alanine Aminotransferase (ALT/SGPT) 12, Alkaline Phosphatase 105, Troponin I < 0.30, Pro-B-Type Natriuretic Peptide 91.7H, Total Protein 6.6, Albumin 3.8, Lipase 21, Procalcitonin 0.14H 01/01/22 22:50: Influenza Type A Antigen NEGATIVE, Influenza Type B Antigen NEGATIVE, SARS-CoV-2 RNA (RT-PCR) Not Detected 01/01/22 23:00: Urine Color YELLOW, Urine Clarity TURBID, Urine pH 8.5, Urine Specific [place] 1.015L, Urine Protein NEGATIVE, Urine Glucose (UA) NEGATIVE, Urine Ketones TRACEH, Urine Nitrite NEGATIVE, Urine Bilirubin NEGATIVE, Urine Urobilinogen 1.0, Urine Leukocyte Esterase NEGATIVE, Urine RBC (Auto) NEGATIVE, Urine RBC RARE, Urine WBC 2-5, Urine Squamous Epithelial Cells RARE, Urine Renal Epitheli al Cells RARE, Urine Crystals PRESENTH, Urine Amorphous Sediment LARGE DREW PHOSPHATEH, Urine Bacteria LARGEH, Urine Casts PRESENT, Urine Hyaline Casts RARE, Urine Mucus MODERATEH, Urine Culture Indicated CULTURE PENDING 01/02/22 04:40: White Blood Count 8.0, Red Blood Count 4.25, Hemoglobin 12.6, Hematocrit 38, Mean Corpuscular Volume 89, Mean Corpuscular Hemoglobin 30, Mean Corpuscular Hemoglobin Concent 33, Red Cell Distribution Width 14.0, Platelet Count 153, Mean Platelet Volume 10.1, Immature Granulocyte % (Auto) 0, Neutrophils (%) (Auto) 91H, Lymphocytes (%) (Auto) 5L, Monocytes (%) (Auto) 3, Eosinophils (%) (Auto) 0, Basophils (%) (Auto) 0, Neutrophils # (Auto) 7.3, Lymphocytes # (Auto) 0.4L, Monocytes # (Auto) 0.3, Eosinophils # (Auto) 0.0, Basophils # (Auto) 0.0, Immature Granulocyte # (Auto) 0.0, Sodium Level 137, Potassium Level 3.8, Chloride Level 105, Carbon Dioxide Level 20L, Anion Gap 12, Blood Urea Nitrogen 9, Creatinine 0.54L, Estimat Glomerular Filtration Rate 107, BUN/Creatinine Ratio 17, Glucose Level 117H, Lactic Acid Level 0.57, Calcium Level 8.1L, Corrected Calcium 8.6, Magnesium Level 1.9, Total Bilirubin 1.0, Aspartate Amino Transf (AST/SGOT) 19, Alanine Aminotransferase (ALT/SGPT) 16, Alkaline Phosphatase 79, Total Protein 5.5L, Albumin 3.4, Neutrophils % (Manual) 89, Lymphocytes % (Manual) 7, Monocytes % (Manual) 4, Eosinophils % (Manual) 0, Basophils % (Manual) 0, Band Neutrophils 0, Blood Morphology Comment NORMAL, Phosphorus Level 2.4 Assessment/Plan/Dx Assessment: 1. Stage 3 vs. 4 pressure ulcer coccyx 2. Full fecal and urinary incontinence 3. 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 Cleanse wound daily with Vashe. Apply layer of Santyl daily to wound bed. Barrier ointment copiously twice daily and prn (for soiling) to periwound. Cover with bordered foam dressing. 2. Monitor closely for soiling and clean as needed 3. Frequent positional changes to stay off area of concern 4. Follow up at outpatient wound care clinic if patient/family able CLIFTON MONZON MD Jan 02, 2022 13:40
[2022-01-02 16:00] VITALS: BP 144/91
--- NOTE | 2022-01-02 17:36 | History & Physical-Hospitalist ---
History of Present Illness HPI/Chief Complaint Saba Torres is a 56 year old female with PMH MS, leukemia in remission, obesity, severely limited mobility, who presented with fever and weakness. Her is her primary county coroner. She had been more weak than normal. She denies shortness of breath and cough. She denies nausea and vomiting. She denies chest pain. She denies abdominal pain. Upon my exam, she is feeling much better. She has not had any more fevers. She denies complaints. Source: patient Exam Limitations: no limitations Date Seen 01/02/22 Time Seen by a Provider: 10:20 Attending Physician Rayne Luz MD PCP Admitting Physician: Teena Torres DO Attending Physician: Teena Torres DO Referring Physician Date of Admission Jan 02, 2022 at 03:03 Home Medications & Allergies Home Medications Reviewed patient Home Medication Reconciliation performed by pharmacy medication reconciliations copier technician and/or nursing. Patients Allergies have been reviewed. Allergies Allergies Coded Allergies No Known Drug Allergies ([id number]/26/19) Past [id number] Hx Patient Social History Tobacco Use?: No Smoking Status: Never a Smoker Use of E-Cig and/or Vaping dev: No Substance use?: No Alcohol Use?: No Pt feels they are or have been: No Current Status Advance Directives: Unable to obtain Communicates: Verbally Primary Language: Thai Preferred Spoken Language: Thai Is interpretation needed?: No Sensory deficits: Speech impairment Implanted or Applied Medical D: None Past Medical History Multiple Sclerosis Leukemia Family Medical History No Pertinent Family Hx Review of Systems Constitutional: fever, weakness EENTM: no symptoms reported Respiratory: no symptoms reported Cardiovascular: no symptoms reported Gastrointestinal: no symptoms reported Genitourinary: no symptoms reported Musculoskeletal: no symptoms reported Skin: no symptoms reported Psychiatric/Neurological: No Symptoms Reported Physical Exam Physical Exam Vital Signs Vital Signs - First Documented 01/01/22 01/02/22 01/02/22 21:50 03:30 04:00 Temp 37.7 Pulse 125 Resp 18 B/P (MAP) 165/95 (118) Pulse Ox 94 O2 Delivery Room Air O2 Flow Rate 6.00 FiO2 21 Capillary Refill : Less Than 3 Seconds Height, Weight, BMI Height: '" Weight: lbs. oz. kg; 34.26 BMI Method: General Appearance: No Apparent Distress, Chronically ill, Obese HEENT: PERRL/EOMI, Pharynx Normal Neck: Normal Inspection, Supple Respiratory: No Respiratory Distress, Decreased Breath Sounds Cardiovascular: Regular Rate, Rhythm, No Murmur, Normal Peripheral Pulses Gastrointestinal: Normal Bowel Sounds, Non Tender, Soft Extremity: Normal Inspection, No Pedal Edema Neurologic/Psychiatric: Alert, Aphasia, Motor Weakness (right arm 1/5, left arm 4/5, bilateral legs 1/5) Skin: Normal Color, Warm/Dry Results Results/Procedures Labs Laboratory Tests 01/01/22 22:15 01/02/22 04:40 01/03/22 06:35 Patient resulted labs reviewed. Imaging: Reviewed Imaging Report Assessment/Plan Admission Diagnosis Pneumonia Admission Status: Observation Assessment and Plan Pneumonia Possible pneumonia on CT Not septic Started on Rocephin and Azithromycin MS Weakness Appears to be at baseline PT/OT Continue home meds History of leukemia Obesity Clinically significant, no acute management needs DVT prophylaxis: Lovenox Diagnosis/Problems Diagnosis/Problems (1) Right lower lobe pneumonia Status: Acute Qualifiers: Pneumonia type: due to unspecified organism Qualified Codes: J18.9 - Pneumonia, unspecified organism SAW MAGDALENO MD Jan 02, 2022 17:36
[2022-01-02] MEDS ORDERED: ENOXAPARIN 40 MG/0.4 ML (LOVENOX) SYR SQ SCH (18:00)
[2022-01-02 20:10] VITALS: BP 173/85
[2022-01-02] MEDS ORDERED: hydrALAZINE (APRESOLINE) 25 MG TAB PO PRN (20:30)
[2022-01-02] MEDS ORDERED: hydrALAZINE (APRESOLINE) 25 MG TAB ONE (20:39)
[2022-01-02] MEDS: BACLOFEN 10 MG (LIORESAL) TAB PO SCH (20:41)
[2022-01-02] MEDS: traZODone 50 MG (DESYREL) TAB PO SCH (20:42)
[2022-01-02] MEDS: GABAPENTIN 600 MG (NEURONTIN) TAB PO SCH (20:42)
[2022-01-02] MEDS ORDERED: AZITHROMYCIN 500 MG/NS 250 ML IVPB IV SCH ×2 (21:00)
[2022-01-02] MEDS ORDERED: NON-FORMULARY MEDICATION 1 EA EA (Escitalopram Oxalate 20 MG) PO SCH (21:00)
[2022-01-03 00:13] VITALS: BP 152/67
[2022-01-03 03:58] VITALS: BP 135/63
[2022-01-03] MEDS: cefTRIAXone 1 GM IV (PRE-MIX) 50 ML IV SCH (05:07)
[2022-01-03] MEDS: NS IV 1000 ML 1,000 ML IV SCH ×2 (05:07→15:35)
[2022-01-03 06:45] LABS: BASOPHILS % (AUTO) 0 % (0-10); EOSINOPHILS % (AUTO) 1 % (0-10); HEMATOCRIT 37 % (35-52); HEMOGLOBIN 12.4 g/dL (11.5-16.0); LYMPHOCYTES # (AUTO) 0.7 10^3/uL (1.0-4.0); LYMPHOCYTES % (AUTO) 12 % (12-44); MEAN CORPUSCULAR HEMOGLOBIN 30 pg (25-34); MEAN CORPUSCULAR HGB CONC 34 g/dL (32-36); MEAN CORPUSCULAR VOLUME 89 fL (80-99); MEAN PLATELET VOLUME 10.2 fL (9.0-12.2); MONOCYTES # (AUTO) 0.6 10^3/uL (0.0-1.0); MONOCYTES % (AUTO) 11 % (0-12); NEUTROPHILS # (AUTO) 4.4 10^3/uL (1.8-7.8); NEUTROPHILS % (AUTO) 76 % (42-75); PLATELET COUNT 167 10^3/uL (130-400); WHITE BLOOD COUNT 5.9 10^3/uL (4.3-11.0)
[2022-01-03] MEDS: RT-ALBUTEROL SULF 2.5 MG/3 ML PRE-MIX VIAL INH SCH ×2 (07:01→21:13)
[2022-01-03 07:03] LABS: POTASSIUM 3.1 MMOL/L (3.6-5.0)
[2022-01-03 07:04] LABS: CALCIUM 8.3 MG/DL (8.5-10.1)
[2022-01-03 07:08] LABS: CREATININE SERUM 0.53 MG/DL (0.60-1.30)
[2022-01-03 08:00] VITALS: BP 132/62
[2022-01-03] MEDS: GABAPENTIN 600 MG (NEURONTIN) TAB PO SCH ×3 (08:38→19:13)
[2022-01-03] MEDS: BACLOFEN 10 MG (LIORESAL) TAB PO SCH ×3 (08:38→19:13)
[2022-01-03] MEDS: COLLAGENASE 30 GM (SANTYL) TUBE TP SCH (08:40)
[2022-01-03] MEDS ORDERED: AZITHROMYCIN 250 MG TAB (ZITHROMAX) PO SCH (09:00)
[2022-01-03 12:00] VITALS: BP 144/80
--- NOTE | 2022-01-03 12:11 | Progress Note - Hospitalist ---
Subjective HPI/CC On Admission Date Seen by Provider: Jan 03, 2022 Time Seen by Provider: 10:45 Subjective/Events-last exam She is feeling better. She and her think she has returned to her baseline. Focused Exam Lactate Level 01/01/22 22:15: Lactic Acid Level 0.67 01/02/22 04:40: Lactic Acid Level 0.57 Objective Exam Vital Signs Vital Signs Date Time Temp Pulse Resp B/P (MAP) Pulse Ox O2 Delivery O2 Flow Rate FiO2 01/03/22 15:35 36.5 98 18 164/75 (104) 93 Room Air 01/02/22 04:00 6.00 01/02/22 03:30 21 Capillary Refill : Less Than 3 Seconds General Appearance: No Apparent Distress, Obese Respiratory: Lungs Clear, No Respiratory Distress Cardiovascular: Regular Rate, Rhythm, No Murmur Gastrointestinal: Normal Bowel Sounds, Soft Extremity: Normal Inspection, No Pedal Edema Neurologic/Psychiatric: Alert, Motor Weakness Skin: Normal Color, Warm/Dry Results/Procedures Lab Laboratory Tests 01/03/22 06:35 Patient resulted labs reviewed. Imaging: Reviewed Imaging Report Assessment/Plan Assessment and Plan Assess & Plan/Chief Complaint Pneumonia Continue Rocephin Dysphagia Speech therapy following Failed barium swallow NPO Surgery consulted for possible PEG placement DIetary provided tube feeding recommendations MS Weakness Appears to be at baseline PT/OT signed off Continue home meds Planning to schedule outpatient MRI History of leukemia Obesity Clinically significant, no acute management needs DVT prophylaxis: Lovenox Diagnosis/Problems Diagnosis/Problems (1) Right lower lobe pneumonia Status: Acute Qualifiers: Pneumonia type: due to unspecified organism Qualified Codes: J18.9 - Pneumonia, unspecified organism (2) Dysphagia Status: Acute Qualifiers: Dysphagia type: oropharyngeal phase Qualified Codes: R13.12 - Dysphagia, oropharyngeal phase (3) Debility Status: Chronic (4) Multiple sclerosis Status: Chronic SAW MAGDALENO MD Jan 03, 2022 12:11
--- NOTE | 2022-01-03 12:45 | Diagnostic Imaging Report ---
INDICATION: Dysphagia. The procedure was performed in conjunction with speech pathology. Video fluoroscopy was performed during the swallowing of barium in multiple consistencies. A total of 0.8 minutes of fluoroscopic time was utilized. Patient ingested thin liquid as well as nectar and honey consistencies and applesauce consistency. There was deep laryngeal penetration during the swallowing of thin, nectar and honey consistencies. Penetration is noted to the level of the cords. No spontaneous cough was visualized. Applesauce consistency was unremarkable. No vallecular or piriform sinus residue was noted. IMPRESSION: Abnormal modified barium swallow demonstrating deep laryngeal penetration during the swallowing of thin, nectar and honey consistencies. Dictated by: Dictated on workstation # [id number]
--- NOTE | 2022-01-03 12:45 | ST Mod Barium Swallow ---
Speech Evaluation-General Medical Diagnosis Dehydration, Right Lower Lobe Pneumonia Onset Date: Jan 01, 2022 Therapy Diagnosis Therapy Diagnosis: Marked Oropharyngeal Dysphagia Precautions Precautions: Fall, Aspiration Precautions/Isolations: Aspiration, Fall Prevention, Standard Precautions Referral Referring Physician: Dr. Fontana Reason for Referral: Evaluation/Treatment Medical History Current History The patient is a 56 year-old female with a past medical history of multiple sclerosis, end stage/leukemia/ sacral ulcers, who presented to [facility] by her family with complaints of generalized weakness, fever, and lack of appetite Reviewed History: Yes Speech Mod Barium Swallow Prior Level of Function Please refer to the patient's acute swallow/dysphagia assessment for additional information regarding prior level of function, results of clinical bedside swallowing assessment, and rationale for completion of the modified barium swallow. Oral Motor Skills Dentition Natural Dentures: Full Lingual Protrusion: Abnormal (The patient demonstrates decrease coordination of the tongue, therefore, distorted lingual protrusion was appreciated.) Lingual Protrusion Abnormal: B Lingual ROM: Abnormal Lingual Strength: Normal Volitional Dry Swallow: Yes Voluntary Cough: Yes (Markedly weak.) Can Clear Throat Volitionally: No Textures-Lateral View Lateral View Food Presentation: Thin Liquid via Spoon, [place] Liquid via Spoon, Honey Liquid via Spoon, Pureed Solids Oral Phase Labial Closure: Right Side (Mild to moderate impairment.) Bolus Formation Pooling L/R: Moderate Impairment Bolus Formation Placement: Moderate Impairment A/P Lingual Propulsion: Moderate Impairment Lingual Movement: Moderate Impairment Oral Phase Residue: Moderate Impairment The patient demonstrated moderate to severe oral dysphagia characterized by poor labial and lingual coordination resulting in poor bolus formation, decreased posterior transfer of bolus material, and premature spillage of all liquid consistencies into the unprotected laryngeal vestibule (laryngeal penetration prior to the swallow). Anterior bolus loss was present with all liquid consistencies to the right labial side. Pharyngeal Phase Swallow Response: Moderate Impairment Base of Tongue: No Impairment (WFL) Epiglottic Movement: No Impairment (WFL) (Delayed, yet, complete.) Laryngeal Elevation: No Impairment (WFL) Vallecular Residue: Mild Pharyngeal Wall Residue: Mild Piriform Sinus Residue: Mild Laryngeal Penetration: Moderate (thin liquid, nectar-thick liquid, honey-thick liquid.) Aspiration Observations: Mild (thin liquid, nectar-thick liquid, honey-thick liquid.) The patient demonstrated mild pharyngeal dysphagia characterized by a delayed onset of the pharyngeal swallow as bolus material reached and remained in the pyriform sinuses prior to initiation of the pharyngeal swallow. The delayed initiation of the pharyngeal swallow resulted in delayed, yet, complete epiglottic inversion allowing continued deep laryngeal penetration of liquid bolus material into the laryngeal vestibule which caused eventual silent aspiration (thin liquid, nectar-thick liquid, honey-thick liquid). No laryngeal penetration or aspiration occurred with puree consistencies. Complete hyo- laryngeal excursion, laryngeal elevation, base of tongue retraction, and pharyngeal contractions were exhibited. The clinician verbally prompted a cough on each episode of silent aspiration, however, the cough was extremely weak and non-productive. The patient was unable to complete compensatory strategies for airway protection due to limitations with mobility and posture. Summary/Impressions The patient demonstrated marked oropharyngeal (oral>pharyngeal) dysphagia characterized by moderately decreased labial and lingual coordination resulting in poor bolus control and premature spillage of bolus material (thin liquid, nectar-thick liquid, honey-thick liquid) into the unprotected laryngeal vestibule prior to the pharyngeal swallow initiation. In addition, a moderately delayed onset of the pharyngeal swallow was triggered which caused delayed epiglottic inversion allowing continued laryngeal penetration of bolus material (thin liquid, nectar-thick liquid, honey-thick liquid) during the swallow with silent aspiration of all liquid bolus material appreciated (mild). The clinician verbally prompted a cough which was extremely weak and non-productive. The patient was unable to complete compensatory strategies secondary to posture and mobility limitations. The patient's largest deficit included decreased lingual coordination. Recommendations: - NPO. The patient is unable to recommend an oral diet consistency due to the visualized silent aspiration of thin liquids, nectar-thick liquids, and honey- thick liquids throughout the modified barium swallow evaluation. - Frequent and excellent oral care to reduce the transfer of oral bacteria to the lungs should aspiration of secretions occur. - Discussion with the patient's physician regarding decisions for intake of nutrition, hydration, medication. - The RN was provided the results and recommendations following completion of the assessment by the clinician. The clinician immediately followed up with the patient and the patient's after completion of the video swallow. The patient's stated the conversation regarding a PEG tube has been initiated by multiple providers in the past and "it's not new." The patient's had multiple questions regarding PEG tube care and maintenance which were deferred to the RN or the patient's possible surgeon. The risks of continued aspiration were discussed including continued respiratory infection and . Additionally, quality of life decisions were discussed as the patient stated she was unsure "if she wanted it." The requested information regarding prognosis which was judged to be poor by the clinician based on the history the patient's has provided the clinician throughout her care. The patient is unable to complete compensatory strategies or strengthening exercises provided by the clinician, therefore, skilled speech pathology treatment is not warranted or recommended. As skilled services can not be provided at this time, speech pathology will sign off. Please re-consult with any changes or concerns. Speech Short Term Goals Short Term Goals Short Term Goals 1. The family and staff will follow safe swallowing recommendations with 90% accuracy, independently. Time Frame-STG: Three Days. Speech Linotype Mechanic Goals Prison Goals 1. The patient will tolerate the least restrictive diet consistency without s/s of suspected aspiration. Time Frame: One Week. Speech-Plan Treatment Plan Speech Therapy Treatment Plan: Discontinue ST Treatment Duration: Jan 09, 2022 Frequency: 3 times per week Estimated Hrs Per Day: .25 hour per day Rehab Potential: Guarded Pt/Family Agrees to Plan: Yes Safety Risks/Education Teaching Recipient: Patient, Family Teaching Methods: Discussion Response to Teaching: Verbalize Understanding, Reinforcement Needed Education Topics Provided: Extensive Discussion re: Results, Recommendations, Risks of Aspiration Time Speech Therapy Time In: 10:45 Speech Therapy Time Out: 11:30 Total Billed Time: 45 Billed Treatment Time 1, MOD, DYST No NICOLASA MARLOW Jan 03, 2022 12:45
[2022-01-03 15:35] VITALS: BP 164/75
[2022-01-03] MEDS: traZODone 50 MG (DESYREL) TAB PO SCH (19:13)
[2022-01-03 20:30] VITALS: BP 142/65
--- NOTE | 2022-01-03 21:05 | Consultation - Surgery ---
History of Present Illness History of Present Illness Patient Consulted On(carmen/time) 01/03/22 20:58 Date Seen by Provider: Jan 03, 2022 Time Seen by Provider: 16:48 History of Present Illness Consult requested by Dr. Fontana for PEG tube placement Patient is a 56-year-old female with MS. She was admitted for aspiration pneumonia. Patient today underwent a modified esophagram which was demonstrating aspiration. Patient's at bedside as well which they have known for a long time that it may come to a point where she needs a gastrostomy tube. Its to the point where she is needing it. He and she both demonstrate understanding that this is needed. She has no abdominal pain at this time. She was likely on to be discharged today or tomorrow but needing the gastrostomy tu be prior to being discharge. Currently her breathing is almost at baseline. She is not having abdominal pain. Denies any nausea vomiting fever sweats chills shortness of breath or chest pain at this time. Allergies and Home Medications Allergies Coded Allergies: No Known Drug Allergies (Unverified , 07/21/19) Patient Home Medication List Home Medication List Reviewed: Yes Baclofen (Baclofen) 10 Mg Tablet, 20 MG PO TID, (Reported) Entered as Reported by: LUIS ENRIQUE RANDALL on 01/02/221122 Last Action: Continued Escitalopram Oxalate (Escitalopram Oxalate) 20 Mg Tablet, 20 MG PO HS, (Reported) Entered as Reported by: LUIS ENRIQUE RANDALL on 01/02/221122 Last Action: Converted Gabapentin (Gabapentin) 600 Mg Tablet, 600 MG PO TID, (Reported) Entered as Reported by: LUIS ENRIQUE RANDALL on 01/02/221122 Last Action: Continued Multivits-Min/Iron/FA/Lutein (Centrum Silver Women Tablet) 8 Mg Iron-400 Mcg-300 Mcg Tablet, 1 EACH PO DAILY, (Reported) Entered as Reported by: LUIS ENRIQUE RANDALL on 01/02/221122 Last Action: Held Trazodone HCl (Trazodone HCl) 50 Mg Tablet, 50 MG PO HS, (Reported) Entered as Reported by: LUIS ENRIQUE RANDALL on 01/02/221122 Last Action: Continued Past Gkfudsj-Vngwpe-Tbckfr Hx Patient Social History Smoking Status: Never a Smoker Alcohol Use?: No Have you traveled recently?: No Surgeries Surgeries: Section Neurological Neurological Disorders: Multiple Sclerosis Cancer Cancer: Leukemia Reviewed Nursing Assessment Reviewed/Agree w Nursing PMH: Yes Family Medical History Significant Family History: No Pertinent Family Hx Review of Systems-General Constitutional: No diaphoresis; weakness EENTM: No blurred vision, No double vision Respiratory: No cough, No dyspnea on exertion Cardiovascular: No chest pain, No palpitations Gastrointestinal: No abdominal pain, No nausea, No vomiting Genitourinary: No decreased output, No discharge Musculoskeletal: No back pain, No joint pain; muscle stiffness, muscle cramps Skin: No change in color, No change in hair/nails Psychiatric/Neurological: Denies Anxiety, Denies Depressed, Denies Emotional Problems All Other Systems Reviewed Negative Unless Noted: Yes (Negative excepted noted.) Physical Exam-General Problems Physical Exam Vital Signs Vital Signs - First Documented 01/01/22 01/02/22 01/02/22 21:50 03:30 04:00 Temp 37.7 Pulse 125 Resp 18 B/P (MAP) 165/95 (118) Pulse Ox 94 O2 Delivery Room Air O2 Flow Rate 6.00 FiO2 21 Capillary Refill : Less Than 3 Seconds General Appearance: no apparent distress, other (Laying in bed) HEENT: PERRL/EOMI, normal ENT inspection Neck: non-tender Respiratory: chest non-tender, no respiratory distress, no accessory muscle use Cardiovascular: regular rate, rhythm, no JVD Gastrointestinal: non tender, soft Rectal: deferred Back: no CVA tenderness, no vertebral tenderness Extremities: no pedal edema, other (Contracted/spasm) Neurologic/Psychiatric: alert (Pleasant) Skin: normal color, warm/dry Lymphatic: no adenopathy Data Review Labs Laboratory Tests 01/03/22 06:35: White Blood Count 5.9, Red Blood Count 4.14, Hemoglobin 12.4, Hematocrit 37, Mean Corpuscular Volume 89, Mean Corpuscular Hemoglobin 30, Mean Corpuscular Hemoglobin Concent 34, Red Cell Distribution Width 13.9, Platelet Count 167, Mean Platelet Volume 10.2, Immature Granulocyte % (Auto) 0, Neutrophils (%) (Auto) 76H, Lymphocytes (%) (Auto) 12, Monocytes (%) (Auto) 11, Eosinophils (%) (Auto) 1, Basophils (%) (Auto) 0, Neutrophils # (Auto) 4.4, Lymphocytes # (Auto) 0.7L, Monocytes # (Auto) 0.6, Eosinophils # (Auto) 0.0, Basophils # (Auto) 0.0, Immature Granulocyte # (Auto) 0.0, Sodium Level 142, Potassium Level 3.1L, Chloride Level 110H, Carbon Dioxide Level 23, Anion Gap 9, Blood Urea Nitrogen 6L, Creatinine 0.53L, Estimat Glomerular Filtration Rate 108, BUN/Creatinine Ratio 11, Glucose Level 93, Calcium Level 8.3L Microbiology 01/02/22 MRSA Screen - Final, Complete MRSA not isolated 01/01/22 Urine Culture - Final, Complete Aerococcus urinae Mixed Bacterial Alyssa 01/01/22 Blood Culture - Preliminary, Resulted No growth Assessment/Plan Assessment/Plan Assessment/Plan Aspiration pneumonia MS With failed modified esophagram swallow study and recommended gastrostomy tube placement to help prevent aspiration. Patient has been states that they have had these discussions previously but now it is time to go ahead and proceed. They understand all risk and benefits. Of percutaneous endoscopic gastrostomy tube. Patient n.p.o. after midnight and will place tomorrow. MAURICIO LEE DO Jan 03, 2022 21:05
[2022-01-04] VITALS (9 sets, daily range): BP systolic 118–168; BP diastolic 63–87
[2022-01-04] MEDS: NS IV 1000 ML 1,000 ML IV SCH ×2 (04:56→18:24)
[2022-01-04] MEDS: cefTRIAXone 1 GM IV (PRE-MIX) 50 ML IV SCH (04:56)
[2022-01-04 05:29] LABS: BASOPHILS % (AUTO) 0 % (0-10); EOSINOPHILS % (AUTO) 1 % (0-10); HEMATOCRIT 35 % (35-52); HEMOGLOBIN 11.8 g/dL (11.5-16.0); LYMPHOCYTES # (AUTO) 0.6 10^3/uL (1.0-4.0); LYMPHOCYTES % (AUTO) 11 % (12-44); MEAN CORPUSCULAR HEMOGLOBIN 30 pg (25-34); MEAN CORPUSCULAR HGB CONC 34 g/dL (32-36); MEAN CORPUSCULAR VOLUME 88 fL (80-99); MEAN PLATELET VOLUME 10.2 fL (9.0-12.2); MONOCYTES # (AUTO) 0.5 10^3/uL (0.0-1.0); MONOCYTES % (AUTO) 8 % (0-12); NEUTROPHILS # (AUTO) 4.4 10^3/uL (1.8-7.8); NEUTROPHILS % (AUTO) 79 % (42-75); PLATELET COUNT 198 10^3/uL (130-400); WHITE BLOOD COUNT 5.5 10^3/uL (4.3-11.0)
[2022-01-04 05:40] LABS: POTASSIUM 2.9 MMOL/L (3.6-5.0)
[2022-01-04 05:42] LABS: CALCIUM 8.4 MG/DL (8.5-10.1)
[2022-01-04 05:46] LABS: CREATININE SERUM 0.52 MG/DL (0.60-1.30)
[2022-01-04] MEDS ORDERED: HURRICAINE EXT TUBE (BENZOCAINE) ONE (08:31)
[2022-01-04] MEDS ORDERED: LACTATED RINGERS 1,000 ML IV ONE (08:33)
[2022-01-04] MEDS ORDERED: PROPOFOL INJECTION 50 ML IV ONE (09:00)
[2022-01-04] MEDS: BACLOFEN 10 MG (LIORESAL) TAB PO SCH ×3 (09:35→19:04)
[2022-01-04] MEDS: GABAPENTIN 600 MG (NEURONTIN) TAB PO SCH ×3 (09:35→19:04)
[2022-01-04] MEDS: COLLAGENASE 30 GM (SANTYL) TUBE TP SCH (09:36)
--- NOTE | 2022-01-04 09:37 | Anesthesia-General Post-Op ---
MAC Patient Condition Mental Status/LOC: Same as Preop Cardiovascular: Satisfactory Nausea/Vomiting: Absent Respiratory: Satisfactory Pain: Controlled Complications: Absent Post Op Complications Complications None Follow Up Care/Instructions Patient Instructions None needed. Anesthesiology Discharge Order Discharge Order Patient is doing well, no complaints, stable vital signs, no apparent adverse anesthesia problems. No complications reported per nursing. JESSIE BORREGO CRNA Jan 04, 2022 09:37
[2022-01-04] MEDS: RT-ALBUTEROL SULF 2.5 MG/3 ML PRE-MIX VIAL INH SCH ×2 (10:02→19:41)
[2022-01-04] MEDS ORDERED: LACTATED RINGERS 1,000 ML IV STA (10:32)
[2022-01-04] MEDS ORDERED: HURRICAINE EXT TUBE (BENZOCAINE) XX PRN (10:45)
[2022-01-04] MEDS: morphine INJ 4 MG/ML 1 ML (VIAL/SYRINGE) IVP PRN ×4 (10:47→21:38)
[2022-01-04] MEDS: ONDANSETRON 4 MG/2 ML (SDV) Z0FRAN IVP PRN (10:47)
--- NOTE | 2022-01-04 12:24 | Progress Note - Hospitalist ---
Subjective HPI/CC On Admission Date Seen by Provider: Jan 04, 2022 Saba Torres is a 56 year old female with PMH MS, leukemia in remission, obesity, severely limited mobility, who presented with fever and weakness. Her is her primary naturopath. She had been more weak than normal. She denies shortness of breath and cough. She denies nausea and vomiting. She denies chest pain. She denies abdominal pain. Upon my exam, she is feeling much better. She has not had any more fevers. She denies complaints. Subjective/Events-last exam Pt reports doing ok. Some soreness around PEG. Discussed plan for observing overnight to make sure peg is functional and starting feeds tomorrow. Will attempt to arrange Jevity supply but may have difficulty over the weekend. Focused Exam Lactate Level 01/01/22 22:15: Lactic Acid Level 0.67 01/02/22 04:40: Lactic Acid Level 0.57 Objective Exam Vital Signs Vital Signs Date Time Temp Pulse Resp B/P (MAP) Pulse Ox O2 Delivery O2 Flow Rate FiO2 01/04/22 11:38 36.4 100 18 128/63 (84) 95 Room Air 01/04/22 09:40 10 01/02/22 03:30 21 Capillary Refill : Less Than 3 Seconds General Appearance: No Apparent Distress, Chronically ill, Obese Respiratory: Lungs Clear, No Respiratory Distress Cardiovascular: Regular Rate, Rhythm, No Murmur Gastrointestinal: Non Tender, Soft Neurologic/Psychiatric: Alert, Oriented x3 Results/Procedures Lab Laboratory Tests 01/04/22 05:00 Patient resulted labs reviewed. Imaging: Reviewed Imaging Report Assessment/Plan Assessment and Plan Assess & Plan/Chief Complaint Pneumonia Continue Rocephin Dysphagia Speech therapy following Failed barium swallow NPO Surgery consulted, PEG placement done today Dietary provided tube feeding recommendations Will attempt to arrange Jevity supply for home over the weekend MS Weakness Appears to be at baseline PT/OT signed off Continue home meds Needs outpatient MRI History of leukemia Obesity Clinically significant, no acute management needs DVT prophylaxis: VALENTE Mobley MD Jan 04, 2022 12:24
--- NOTE | 2022-01-04 14:16 | Progress Note - Surgery ---
Subjective Date Seen by a Provider: Jan 04, 2022 Time Seen by a Provider: 08:14 Subjective/Events-last exam No changes or concerns. NPO. Denies n/v fever sweats chills shortness of breath or chest pain. at bedside. Plan for peg today. Discussed some management of peg tube care. Focused Exam Lactate Level 01/01/22 22:15: Lactic Acid Level 0.67 01/02/22 04:40: Lactic Acid Level 0.57 Objective Exam Vital Signs Date Time Temp Pulse Resp B/P (MAP) Pulse Ox O2 Delivery O2 Flow Rate FiO2 01/04/22 13:00 99 01/04/22 11:38 36.4 100 18 128/63 (84) 95 Room Air 01/04/22 09:45 107 16 98 Room Air 01/04/22 09:40 105 16 100 OxyMask 10 01/04/22 09:35 106 16 99 OxyMask 10 01/04/22 07:40 36.4 94 18 149/71 (97) 98 Room Air 01/04/22 07:00 91 01/04/22 04:00 37.1 97 20 157/71 (99) 96 Room Air 01/04/22 01:00 87 01/04/22 00:00 36.5 96 18 154/69 (97) 96 Room Air 01/03/22 21:13 93 Room Air 01/03/22 20:30 36.4 94 18 142/65 (90) 98 Room Air 01/03/22 20:10 Room Air 01/03/22 19:00 100 01/03/22 15:35 36.5 98 18 164/75 (104) 93 Room Air I & O 01/04/22 07:00 Intake Total 1120 ml Output Total 2600 ml Balance -1480 ml Capillary Refill : Less Than 3 Seconds General Appearance: No Apparent Distress, Chronically ill, Obese HEENT: PERRL/EOMI, Pharynx Normal Neck: Normal Inspection, Supple Respiratory: Lungs Clear, No Respiratory Distress Cardiovascular: Regular Rate, Rhythm, No Murmur Gastrointestinal: non tender, soft Extremity: Normal Inspection, No Pedal Edema Neurologic/Psychiatric: Alert, Oriented x3 Skin: Normal Color, Warm/Dry Results Lab Laboratory Tests 01/04/22 05:00: White Blood Count 5.5, Red Blood Count 3.95, Hemoglobin 11.8, Hematocrit 35, Mean Corpuscular Volume 88, Mean Corpuscular Hemoglobin 30, Mean Corpuscular Hemoglobin Concent 34, Red Cell Distribution Width 14.0, Platelet Count 198, Mean Platelet Volume 10.2, Immature Granulocyte % (Auto) 1, Neutrophils (%) (Auto) 79H, Lymphocytes (%) (Auto) 11L, Monocytes (%) (Auto) 8, Eosinophils (%) (Auto) 1, Basophils (%) (Auto) 0, Neutrophils # (Auto) 4.4, Lymphocytes # (Auto) 0.6L, Monocytes # (Auto) 0.5, Eosinophils # (Auto) 0.0, Basophils # (Auto) 0.0, Immature Granulocyte # (Auto) 0.0, Sodium Level 142, Potassium Level 2.9L, Chloride Level 106, Carbon Dioxide Level 20L, Anion Gap 16H, Blood Urea Nitrogen 2L, Creatinine 0.52L, Estimat Glomerular Filtration Rate 108, BUN/Creatinine Ratio 4, Glucose Level 72, Calcium Level 8.4L Microbiology 01/02/22 MRSA Screen - Final, Complete MRSA not isolated 01/01/22 Urine Culture - Final, Complete Aerococcus urinae Mixed Bacterial Alyssa 01/01/22 Blood Culture - Preliminary, Resulted No growth Assessment/Plan Assessment/Plan Assessment/Plan Aspiration pneumonia MS With failed modified esophagram swallow study and recommended gastrostomy tube placement to help prevent aspiration. They understand all risk and benefits of percutaneous endoscopic gastrostomy tube. Patient n.p.o. Placing today. MAURICIO LEE DO Jan 04, 2022 14:16
--- NOTE | 2022-01-04 17:30 | Progress Note-Post Operative ---
Post-Operative Progess Note Surgeon (s)/Manager Research (s) Surgeon MAURICIO LEE DO Manager Research: na Pre-Operative Diagnosis dysphagia c aspiration, ms Post-Operative Diagnosis same Procedure & Operative Findings Date of Procedure 01/04/22 Procedure Performed/Findings EGD and percutaneous endoscopic gastrostomy tube placement Anesthesia Type per ophthalmic technologist Estimated Blood Loss Estimated blood loss (mL): minimal Specimens/Packing Specimens Removed na Packing: dictation number [id number] MAURICIO LEE DO Jan 04, 2022 17:30
[2022-01-04] MEDS: traZODone 50 MG (DESYREL) TAB PO SCH (19:04)
[2022-01-05] VITALS (8 sets, daily range): BP systolic 119–156; BP diastolic 66–87
--- NOTE | 2022-01-05 02:49 | OPERATIVE REPORT ---
DATE OF SERVICE: 01/04/2022 PREOPERATIVE DIAGNOSIS: Dysphagia with aspiration and multiple sclerosis. POSTOPERATIVE DIAGNOSIS: Dysphagia with aspiration and multiple sclerosis. PROCEDURE: EGD with percutaneous endoscopic gastrostomy tube placement. SURGEON: Mauricio Romero DO ANESTHESIA: Per WELDER GUN. ESTIMATED BLOOD LOSS: Minimal. COMPLICATIONS: None. INDICATIONS: The patient is a 56-year-old female with a mass, failed swallow studies. The patient was recommended gastrostomy tube placement, which family understands risks and benefits along with the patient and wishes to proceed. Consent was signed in the chart. DESCRIPTION OF PROCEDURE: The patient was taken to the endoscopy suite, placed in the supine position. Scope was inserted in mouth, down the esophagus, stomach and into the duodenum without difficulty. There were no polyps, masses or ulcerations within the duodenum. Scope was slowly retracted back into the stomach where it was further insufflated. Visualized bladder wall. Light was able to be visualized. Local anesthetic was infiltrated after the abdomen was prepped and draped in sterile fashion. An 11-blade scalpel was used to make a small skin incision. The Angiocath needle was inserted, but unable to be placed in the stomach. Therefore, the patient was slightly repositioned, and the light was visualized again. Local anesthetic was infiltrated and 11 blade scalpel was used to make a small skin incision and an Angiocath needle was inserted without difficulty. The needle was removed. The wire was inserted through the sheath and then snared and then brought out through the mouth. The gastrostomy tube was then attached to the guidewire, which was then withdrawn putting the gastrostomy tube in place. The gastroscope demonstrating good position. Scope was then withdrawn until completely removed, noting no other pathology. The gastrostomy tube was then secured in the usual fashion. It was cut to length. The area was then washed and dried and sterile bandages were applied. The patient tolerated procedure well without any complications. She was taken to recovery room in stable condition. Job ID: [id number] DocumentID: [id number] Dictated Date: 01/04/2022 17:32:39 Social Services Director Date: 01/05/2022 02:49:48 Dictated By: MAURICIO ROMERO DO
[2022-01-05] MEDS: morphine INJ 4 MG/ML 1 ML (VIAL/SYRINGE) IVP PRN ×2 (03:57→12:42)
[2022-01-05] MEDS: cefTRIAXone 1 GM IV (PRE-MIX) 50 ML IV SCH (05:53)
[2022-01-05 06:22] LABS: BASOPHILS % (AUTO) 0 % (0-10); EOSINOPHILS % (AUTO) 0 % (0-10); HEMATOCRIT 37 % (35-52); HEMOGLOBIN 12.2 g/dL (11.5-16.0); LYMPHOCYTES # (AUTO) 0.5 10^3/uL (1.0-4.0); LYMPHOCYTES % (AUTO) 7 % (12-44); MEAN CORPUSCULAR HEMOGLOBIN 29 pg (25-34); MEAN CORPUSCULAR HGB CONC 33 g/dL (32-36); MEAN CORPUSCULAR VOLUME 89 fL (80-99); MEAN PLATELET VOLUME 9.9 fL (9.0-12.2); MONOCYTES # (AUTO) 0.5 10^3/uL (0.0-1.0); MONOCYTES % (AUTO) 6 % (0-12); NEUTROPHILS # (AUTO) 6.5 10^3/uL (1.8-7.8); NEUTROPHILS % (AUTO) 86 % (42-75); PLATELET COUNT 241 10^3/uL (130-400); WHITE BLOOD COUNT 7.6 10^3/uL (4.3-11.0)
[2022-01-05] MEDS: NS IV 1000 ML 1,000 ML IV SCH ×3 (06:31→22:25)
[2022-01-05 06:34] LABS: POTASSIUM 3.1 MMOL/L (3.6-5.0)
[2022-01-05 06:35] LABS: CALCIUM 8.4 MG/DL (8.5-10.1)
[2022-01-05 06:39] LABS: CREATININE SERUM 0.6 MG/DL (0.60-1.30)
[2022-01-05] MEDS: GABAPENTIN 600 MG (NEURONTIN) TAB PO SCH ×3 (10:38→21:17)
[2022-01-05] MEDS: BACLOFEN 10 MG (LIORESAL) TAB PO SCH ×3 (10:38→21:18)
--- NOTE | 2022-01-05 11:35 | Progress Note - Hospitalist ---
Subjective HPI/CC On Admission Date Seen by Provider: Jan 05, 2022 Saba Torres is a 56 year old female with PMH MS, leukemia in remission, obesity, severely limited mobility, who presented with fever and weakness. 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 She had been more weak than normal. She denies shortness of breath and cough. She denies nausea and vomiting. She denies chest pain. She denies abdominal pain. Upon my exam, she is feeling much better. She has not had any more fevers. She denies complaints. Subjective/Events-last exam Pt reports feeling very hot this morning. No abd pain. Otherwise no complaints. has already set up fan on patient. Discussed plan to work with tube feeding therapy provider to arrange jevity supply at home and hopeful plan to DC tomorrow. Objective Exam Vital Signs Vital Signs Date Time Temp Pulse Resp B/P (MAP) Pulse Ox O2 Delivery O2 Flow Rate FiO2 01/05/22 07:50 36.6 102 16 125/66 (85) 95 Room Air 01/05/22 03:23 21 01/04/22 09:40 10 Capillary Refill : Less Than 3 Seconds General Appearance: No Apparent Distress, Chronically ill, Obese Respiratory: Lungs Clear, No Respiratory Distress Cardiovascular: Regular Rate, Rhythm, No Murmur Neurologic/Psychiatric: Alert, Oriented x3 Results/Procedures Lab Laboratory Tests 01/05/22 06:13 Patient resulted labs reviewed. Imaging: Reviewed Imaging Report Assessment/Plan Assessment and Plan Assess & Plan/Chief Complaint Pneumonia Continue Rocephin- complete tomorrow Dysphagia Speech therapy consulted Failed barium swallow NPO Surgery consulted, PEG placement done01/04 Dietary provided tube feeding recommendations Will attempt to arrange Jevity supply for home over the weekend I called [facility] and was unable to get in contact with anyone so will keep in the hospital until tomorrow so we can arrange feeds at home Start tube feeds today once PEG evaluated by Dr Romero MS Weakness Appears to be at baseline PT/OT signed off Continue home meds Needs outpatient MRI History of leukemia Obesity Clinically significant, no acute management needs DVT prophylaxis: VALENTE Mobley MD Jan 05, 2022 11:35
--- NOTE | 2022-01-05 15:13 | Progress Note - Surgery ---
Subjective Date Seen by a Provider: Jan 05, 2022 Time Seen by a Provider: 09:39 Subjective/Events-last exam Patient feeling okay. Feels little bit hot today. Patient not with any abdominal pain. Gastrostomy tube site looks okay. Denies any nausea vomiting fever sweats chills shortness of breath or chest pain. Objective Exam Vital Signs Date Time Temp Pulse Resp B/P (MAP) Pulse Ox O2 Delivery O2 Flow Rate FiO2 01/05/22 13:00 87 01/05/22 12:20 36.2 96 18 156/80 (105) 96 Room Air 01/05/22 08:00 Room Air 01/05/22 07:50 36.6 102 16 125/66 (85) 95 Room Air 01/05/22 07:00 88 01/05/22 03:36 35.2 101 18 133/70 (91) 97 Room Air 01/05/22 03:23 36.5 73 97 21 01/05/22 01:00 88 01/05/22 00:00 36.5 97 18 119/87 (98) 97 Room Air 01/04/22 19:41 94 Room Air 01/04/22 19:25 Room Air 01/04/22 19:20 36.4 73 20 118/72 (87) 98 Room Air 01/04/22 19:00 100 01/04/22 16:11 36.7 99 18 143/87 (105) 97 Room Air I & O 01/05/22 07:00 Intake Total 250 ml Output Total 1350 ml Balance -1100 ml Capillary Refill : Less Than 3 Seconds General Appearance: No Apparent Distress, Chronically ill, Obese HEENT: PERRL/EOMI, Pharynx Normal Neck: Normal Inspection, Supple Respiratory: Lungs Clear, No Respiratory Distress Cardiovascular: Regular Rate, Rhythm, No Murmur Gastrointestinal: non tender, soft, other (gastrostomy tube luq) Extremity: Normal Inspection, No Pedal Edema, Other Neurologic/Psychiatric: Alert, Oriented x3 Skin: Normal Color, Warm/Dry Results Lab Laboratory Tests 01/05/22 06:13: White Blood Count 7.6, Red Blood Count 4.15, Hemoglobin 12.2, Hematocrit 37, Mean Corpuscular Volume 89, Mean Corpuscular Hemoglobin 29, Mean Corpuscular Hemoglobin Concent 33, Red Cell Distribution Width 14.2, Platelet Count 241, Mean Platelet Volume 9.9, Immature Granulocyte % (Auto) 0, Neutrophils (%) (Auto) 86H, Lymphocytes (%) (Auto) 7L, Monocytes (%) (Auto) 6, Eosinophils (%) (Auto) 0, Basophils (%) (Auto) 0, Neutrophils # (Auto) 6.5, Lymphocytes # (Auto) 0.5L, Monocytes # (Auto) 0.5, Eosinophils # (Auto) 0.0, Basophils # (Auto) 0.0, Immature Granulocyte # (Auto) 0.0, Sodium Level 141, Potassium Level 3.1L, Chlo ride Level 106, Carbon Dioxide Level 17L, Anion Gap 18H, Blood Urea Nitrogen 4L, Creatinine 0.60, Estimat Glomerular Filtration Rate 105, BUN/Creatinine Ratio 7, Glucose Level 64L, Calcium Level 8.4L Microbiology 01/03/22 MRSA Screen - Final, Complete MRSA not isolated 01/01/22 Urine Culture - Final, Complete Aerococcus urinae Mixed Bacterial Alyssa 01/01/22 Blood Culture - Preliminary, Resulted No growth Assessment/Plan Assessment/Plan Assessment/Plan Aspiration pneumonia MS With failed modified esophagram swallow study and recommended gastrostomy tube placement to help prevent aspiration done yesterday. I worked with on education with gastrostomy tube management. WIll sign off, call if needed. MAURICIO LEE DO Jan 05, 2022 15:13
[2022-01-05] MEDS: COLLAGENASE 30 GM (SANTYL) TUBE TP SCH (15:43)
[2022-01-05] MEDS: ONDANSETRON 4 MG/2 ML (SDV) Z0FRAN IVP PRN (16:54)
[2022-01-05] MEDS: traZODone 50 MG (DESYREL) TAB PO SCH (21:17)
[2022-01-06 03:14] VITALS: BP 131/81
[2022-01-06] MEDS: cefTRIAXone 1 GM IV (PRE-MIX) 50 ML IV SCH (06:02)
[2022-01-06 06:29] LABS: BASOPHILS % (AUTO) 0 % (0-10); EOSINOPHILS # (AUTO) 0.1 10^3/uL (0.0-0.3); EOSINOPHILS % (AUTO) 1 % (0-10); HEMATOCRIT 37 % (35-52); HEMOGLOBIN 12.6 g/dL (11.5-16.0); LYMPHOCYTES # (AUTO) 0.4 10^3/uL (1.0-4.0); LYMPHOCYTES % (AUTO) 4 % (12-44); MEAN CORPUSCULAR HEMOGLOBIN 30 pg (25-34); MEAN CORPUSCULAR HGB CONC 34 g/dL (32-36); MEAN CORPUSCULAR VOLUME 86 fL (80-99); MEAN PLATELET VOLUME 9.4 fL (9.0-12.2); MONOCYTES # (AUTO) 0.9 10^3/uL (0.0-1.0); MONOCYTES % (AUTO) 8 % (0-12); NEUTROPHILS # (AUTO) 9.8 10^3/uL (1.8-7.8); NEUTROPHILS % (AUTO) 87 % (42-75); PLATELET COUNT 251 10^3/uL (130-400); WHITE BLOOD COUNT 11.4 10^3/uL (4.3-11.0)
[2022-01-06 06:35] LABS: POTASSIUM 2.8 MMOL/L (3.6-5.0)
[2022-01-06 06:36] LABS: CALCIUM 8.3 MG/DL (8.5-10.1)
[2022-01-06 06:40] LABS: CREATININE SERUM 0.6 MG/DL (0.60-1.30)
[2022-01-06] MEDS ORDERED: KCL 20 MEQ TAB (K-DUR) PO NR (07:45)
[2022-01-06 07:57] VITALS: BP 145/64
[2022-01-06] MEDS ORDERED: LACT-72 PEG ×2 (09:02→09:04)
--- NOTE | 2022-01-06 09:08 | Discharge Inst-Simple/Standard ---
Discharge Inst-Standard Discharge Medications New, Converted or Re-Newed RX: Transmitted to Pharmacy Patient Instructions/Follow Up Plan of Care/Instructions/FU: Please continue to take your medications as written. Please follow up with your primary care doctor to follow up this hospital stay. Activity as Tolerated: Yes Discharge Diet: Cardiac Diet Return to The Hospital For: Chest pain, weakness, shortness of breath, heart racing, if you feel you are getting worse. VALENTE ALDRIDGE MD Jan 06, 2022 09:08
[2022-01-06] MEDS: GABAPENTIN 600 MG (NEURONTIN) TAB PO SCH (09:46)
[2022-01-06] MEDS: BACLOFEN 10 MG (LIORESAL) TAB PO SCH (09:46)
[2022-01-06] MEDS: COLLAGENASE 30 GM (SANTYL) TUBE TP SCH (10:26)
--- NOTE | 2022-01-06 10:32 | Discharge Summary ---
Diagnosis/Chief Complaint Date of Admission Jan 02, 2022 at 03:03 Date of Discharge Discharge Date: Jan 06, 2022 Admission Diagnosis Pneumonia Primary Care Rayne Luz MD Discharge Diagnosis (1) Right lower lobe pneumonia Status: Acute (2) Dysphagia Status: Acute (3) Debility Status: Chronic (4) Multiple sclerosis Status: Chronic Discharge Summary Discharge Physical Exam Allergies: Coded Allergies: No Known Drug Allergies (Unverified , 07/21/19) Vitals & I&Os Vital Signs Date Time Temp Pulse Resp B/P (MAP) Pulse Ox O2 Delivery O2 Flow Rate FiO2 01/06/22 08:00 Room Air 01/06/22 07:57 37.2 120 18 145/64 (91) 94 01/05/22 19:45 0.00 01/05/22 03:23 21 General Appearance: No Apparent Distress, Chronically ill, Obese Cardiovascular: Regular Rate, Rhythm, No Murmur Neurologic/Psychiatric: Alert, Oriented x3 Hospital Course Patient was admitted to the hospital secondary to aspiration pneumonia and generalized weakness. She has MS but returned to her baseline functional status though is chronically debilitated. While here she was noted to be aspirating and swallow study revealed oral intake was unsafe. Secondary to this she underwent PEG tube placement by Dr. Romero. She tolerated this well was started on tube feeds. She was discharged home in stable and improved condition with [facility] to provide home tube feeds. Labs (last 24 hrs) Microbiology 01/03/22 MRSA Screen - Final, Complete MRSA not isolated 01/01/22 Urine Culture - Final, Complete Aerococcus urinae Mixed Bacterial Alyssa 01/01/22 Blood Culture - Final, Complete No growth Patient resulted labs reviewed. Pending Labs Imaging: Reviewed Imaging Report Discussion & Recommendations Discharge Planning: >30 minutes discharge planning Discharge Home Medications: Active Scripts Active Jevity 1.5 Zhang Liquid (Lactose-Reduced Food/Fiber) 0.06 Gram-1.5 Kcal/Ml Liquid 1 Ea PEG QID 4 CAN PER DAY PER PEGTUBE Reported Centrum Silver Women Tablet (Multivits-Min/Iron/FA/Lutein) 8 Mg Iron-400 Mcg-300 Mcg Tablet 1 Each PO DAILY Baclofen 10 Mg Tablet 20 Mg PO TID TAKES 2 (10MG) TABS Trazodone HCl 50 Mg Tablet 50 Mg PO HS Gabapentin 600 Mg Tablet 600 Mg PO TID Escitalopram Oxalate 20 Mg Tablet 20 Mg PO HS Instructions to patient/family Please see electronic discharge instructions given to patient. Problem Qualifiers (1) Right lower lobe pneumonia: Pneumonia type: due to unspecified organism Qualified Codes: J18.9 - Pneumonia, unspecified organism (2) Dysphagia: Dysphagia type: oropharyngeal phase Qualified Codes: R13.12 - Dysphagia, oropharyngeal phase VALENTE ALDRIDGE MD Jan 06, 2022 10:32
[2022-01-06] MEDS ORDERED: POTASSIUM BICARB 20 MEQ (EFFER-K) TABLET PO NR (10:34)
--- NOTE | 2022-01-07 17:48 | Physician Query Clarification ---
Physician Query-General Query to Physician: The medical record reflects the following clinical scenario: The patient, in the setting of History/Risk factors, Weakness, MS, Clinical Findings Per Speech therapist "...visualized silent aspiration of thin liquids, nectar-thick liquids, and honey-thick liquids throughout the modified barium swallow evaluation", Per CTA "patchy infiltrate in right lung base". VS: HR 125, RR 18, BP 165/95, SpO2 94% sat on room T 37.7 Treatment Azithromycin IV, Ceftriaxone IV NPO, Peg Tube placement, Question: Do you agree with the impression of Aspiration pneumonia per Dr. Blanca Romero? 1. Yes; will document Aspiration pneumonia, present on admission in the Progress Notes 2. No; will continue current documentation in the Progress Notes 3. Other; will document explanation of clinical findings 4. Clinically undetermined; no explanation for clinical findings Please clarify and document your clinical opinion in the Progress Notes and Discharge Summary including the definitive and/or presumptive diagnosis, (suspected or probable), related to the above clinical findings. Please include clinical findings supporting your diagnosis. In responding to this query, please exercise your independent professional judgment. The purpose of this communication is to more accurately reflect the complexity of your patients condition. The fact that a question is asked does not imply that any particular answer is desired or expected. Thank you for timely response to this clarification. Janice Castillo MSN, RN Clinical Cyber Crime Investigator [phone] [email or web address] PHYSICIAN RESPONSE: Based on the clinical findings in the record, please respond to the query above on this document as an addendum. Physician Response: Physician Response 1 If you have questions please contact: Hospital Superintendent: Ext: Thank you for your time and cooperation. Clinical Cyber Crime Investigator/Hospital Superintendent This is a permanent part of the medical record JANICE CASTILLO Jan 07, 2022 17:48 VALENTE ALDRIDGE MD Jan 09, 2022 15:34
== END 2022-01-06 11:50 | disposition home or self-care (01) | DRG 177 ==
LOC: EDUNIT# 21:40 → ER FS 21:41 → ICU 01-02 03:03 → 4TH 01-02 14:50
PROVIDERS: ADMIT Internal Medicine; ATTEND Family Medicine
PROC: 0DJ08ZZ Inspection of Upper Intestinal Tract, Via Natural or Artificial Opening Endoscopic (ICD-10-PCS; 2022-01-04)
PROC: 0DH63UZ Insertion of Feeding Device into Stomach, Percutaneous Approach (ICD-10-PCS; principal; 2022-01-04 08:50)
DX: J69.0 Pneumonitis due to inhalation of food and vomit (principal); L89.153 Pressure ulcer of sacral region, stage 3; G35 Multiple sclerosis; E86.0 Dehydration; R53.1 Weakness; E66.9 Obesity, unspecified; Z85.6 Personal history of leukemia; R53.81 Other malaise; Z20.822 Contact with and (suspected) exposure to COVID-19; Z68.31 Body mass index [BMI] 31.0-31.9, adult
CPT/HCPCS: 36415; 51702; 71045; 71275; 74230; 80048; 80053; 81000; 83605; 83690; 83735; 83880; 84100; 84145; 84484; 85007; 85025; 85027; 85379; 85610; 85730; 87040; 87077; 87081; 87088; 87636; 87804; 93005; 94640; 94760; 96374; 96375; Q9967

== ENCOUNTER 2023-06-24 13:53 | Emergency (ER) | payer MEDICARE ==
[~2023-06-24 13:53] MED LIST changes: +BACL10TA PO; +ESCI20TA39 PO; -GADOBUTROL 7.5 MMOL/7.5 ML (GADAVIST) VIAL IV ONE; +GBPN600T PO; +LACT-72 PEG; +MULT-1021 PO; +TRZ50T PO
[2023-06-24 13:55] VITALS: BP 119/61
--- NOTE | 2023-06-24 14:08 | ED GI ---
General Chief Complaint: Catheter/Drain/Tube Problems Stated Complaint: FEEDING TUBE ISSUE Nursing Triage Note: PTS FEEDING TUBE HAS MALFUNCTIONED AND GUS WAGNER SENT HER BY EMS TO GET A NEW ONE REPLACED. Source of Information: Patient, EMS Exam Limitations: No Limitations, Other (patient is non verbal) History of Present Illness Date Seen by Provider: Jun 24, 2023 Time Seen by Provider: 13:50 Initial Comments 57-year-old female presents emergency room today for gastrostomy tube issues. There is a laceration just beneath the port portion of the gastrostomy tube that happened just prior to arrival. She is scheduled in 1 week to see the general surgeon for possible replacement. All other systems reviewed and negative except documented per HPI. Voice recognition software was used to help create this chart Allergies and Home Medications Allergies Coded Allergies: No Known Drug Allergies (Unverified , 07/21/19) Patient Home Medication List Home Medication List Reviewed: Yes Baclofen (Baclofen) 10 Mg Tablet, 20 MG PO TID, (Reported) Entered as Reported by: LUIS ENRIQUE RANDALL on 01/02/22 112 Escitalopram Oxalate (Escitalopram Oxalate) 20 Mg Tablet, 20 MG PO HS, (Reported) Entered as Reported by: LUIS ENRIQUE RANDALL on 01/02/22 112 Gabapentin (Gabapentin) 600 Mg Tablet, 600 MG PO TID, (Reported) Entered as Reported by: LUIS ENRIQUE RANDALL on 01/02/22 1123 Lactose-Reduced Food/Fiber (Jevity 1.5 Zhang Liquid) 0.06 Gram-1.5 Kcal/Ml Liquid, 1 EA PEG QID Prescribed by: VALENTE ALDRIDGE on 01/06/22 0904 Multivits-Min/Iron/FA/Lutein (Centrum Silver Women Tablet) 8 Mg Iron-400 Mcg-300 Mcg Tablet, 1 EACH PO DAILY, (Reported) Entered as Reported by: LUIS ENRIQUE RANDALL on 01/02/22 1123 Trazodone HCl (Trazodone HCl) 50 Mg Tablet, 50 MG PO HS, (Reported) Entered as Reported by: LUIS ENRIQUE RANDLAL on 01/02/221122 Review of Systems Review of Systems Constitutional: see HPI Past Hovrbea-Hhtbzo-Djntzr Hx Patient Social History Tobacco Use?: No Use of E-Cig and/or Vaping dev: Unable to obtain Substance use?: Unable to obtain Alcohol Use?: Unable to obtain Pt feels they are or have been: Unable to obtain Past Medical History Section Multiple Sclerosis Leukemia Family Medical History No Pertinent Family Hx Physical Exam Vital Signs Vital Signs - First Documented 06/24/23 13:55 Temp 35.7 Pulse 64 Resp 16 B/P (MAP) 119/61 (80) Pulse Ox 100 Capillary Refill : Less Than 3 Seconds Height/Weight/BMI Height: '" Weight: lbs. oz. kg; 31.25 BMI Method: General Appearance: WD/WN, no apparent distress Gastrointestinal: other (Laceration to records the way through the gastrostomy tube proximally.) Progress/Results/Core Measures Results/Orders Vital Signs/I&O 06/24/23 13:55 Temp 35.7 Pulse 64 Resp 16 B/P (MAP) 119/61 (80) Pulse Ox 100 Blood Pressure Mean: 80 Departure Communication (Admissions) Gastrostomy tube was cut just below the laceration. The port portion was removed and placed back on the remaining portion of the catheter. This was then affixed with tape. Stomach contents were easily aspirated. She will follow-up with Dr. Romero in 1 week. I did speak with him on the phone and he is comf ortable with this plan of care. Impression Primary Impression: Gastrostomy tube dysfunction Disposition: 01 HOME, SELF-CARE Condition: Stable Departure-Patient Inst. Referrals: EFRAIN CRABTREE MD (PCP/Family) Primary Care Physician Patient Instructions: Gastrostomy, Permanent and Temporary (DC) Add. Discharge Instructions: See Dr. Romero as previously scheduled. Return to the emergency department for any severe concerns. Use your gastrostomy tube as previously recommended All discharge instructions reviewed with patient and/or family. Voiced understanding. KORINJENNYMARITA Kirby DO Jun 24, 2023 14:08
== END 2023-06-24 14:20 | disposition home or self-care (01) ==
LOC: EDUNIT# 13:53 → ER FS 13:54
DX: K94.23 Gastrostomy malfunction (principal)
CPT/HCPCS: 99283